=== PATIENT | male | born 1960 ===

== ENCOUNTER → 2017-02-01 | Day surgery (SDC) | payer OTHER ==
[~2017-02-01] MED LIST: Etomidate 20 mg/10ml Inj IV ONE; Lactated Ringer's 1,000 ML IV ONE; Lidocaine 2% Jelly (30 ml) ONE; Midazolam 2 MG/2 ML VIAL ONE; Propofol 10 mg/ml Inj (20 ML) ONE
[2017-02-01 11:07] VITALS: TEMP 98
[2017-02-01 12:10] VITALS: RESP 16; O2SAT 95
[2017-02-01 12:22] VITALS: BP 101/57; PULSE 99
== END | disposition home or self-care (01) ==
LOC: H.ENDO 09:34
PROVIDERS: ATTEND Internal Medicine Gastroenterology
DX: R13.10 Dysphagia, unspecified (principal); R63.3 Feeding difficulties; D38.0 Neoplasm of uncertain behavior of larynx; Z43.1 Encounter for attention to gastrostomy
CPT/HCPCS: 43246; J2250; J2704; J7120

== ENCOUNTER 2017-12-14 15:30 | Inpatient (IN) | payer MEDICAID, OTHER ==
[2017-12-14] MEDS ORDERED: Sodium Chloride 0.9% 1,000 ML IV STA (16:22)
[2017-12-14] MEDS ORDERED: Pantoprazole 80 MG in Sodium Chloride 0.9% 100 ML IVPB STA (16:26)
--- NOTE | 2017-12-14 16:39 | ED PDOC ---
Addendum entered and electronically signed by Pablo Bradshaw PA 12/14/17 20:15: Physical Exam - Physical Exam Appears: Well, No Acute Distress Skin: Normal Color, Warm, Dry Eye(s): bilateral: Normal Inspection, PERRL, EOMI Nose: Normal Oral Mucosa: Dry, Other (dark material noted in mouth) Throat: Normal Neck: Normal Cardiovascular: Rhythm Regular Respiratory: Normal Breath Sounds, Rhonchi Gastrointestinal/Abdominal: Normal Exam, Other ( G tube noted.) Rectal: Other (dark brown stool) Back: Normal Inspection Extremity: Normal ROM Original Note: Syncope/Near Syncope/Dizziness Time Seen by Provider: 12/14/17 16:38 Chief Complaint (Nursing): Weakness/Neurological Deficit Chief Complaint (Provider): weakness History Per: Patient (57 y/o male h/o Bipolar disorder/DM/metastatic laryngeal cancer undergoing chemo (LAST 12/01 OPDIVA, here with complaint of weakness associated with nausea/vomiting/syncope today. Ex who frequently cares for him states he was noted vomiting dark black material today. Patient is on anticoagulants as per ex . Patient states he has a lot of throat pain otherwise. No fevers/chills noted.) Past Medical History Reviewed: Historical Data, Nursing Documentation, Vital Signs Vital Signs: Last Vital Signs Temp 98.2 F 12/14/17 15:39 Pulse 110 H 12/14/17 15:39 Resp 16 12/14/17 15:39 BP 117/73 12/14/17 15:39 Pulse Ox 97 12/14/17 15:39 - Medical History PMH: Hypercholesterolemia - Family History Family History: States: No Known Family Hx - Home Medications Home Medications: Ambulatory Orders Medication Instructions Recorded Aspirin [Ecotrin] 81 mg PO DAILY 02/01/17 Gabapentin [Neurontin] 300 mg PO Q8 02/01/17 Albuterol 0.083% [Albuterol 0.083% 3 ml IH Q6 PRN 12/14/17 Inhal Anahy (2.5 mg/3 ml) UD] Apixaban [Eliquis] 5 mg PO Q12 12/14/17 Methadone 85 mg PO DAILY 12/14/17 Olanzapine [Zyprexa] 15 mg PO HS 12/14/17 Oxycodone HCl/Acetaminophen 1 tab PO Q4 PRN 10/16/18 [Percocet 10-325 mg Tablet] levoFLOXacin [Levaquin] 750 mg PO DAILY 12/14/17 metFORMIN [glucOPHAGE] 850 mg PO BID 12/14/17 - Allergies Allergies/Adverse Reactions: Allergies Allergy/AdvReac Type Severity Reaction Status Date / Time No Known Allergies Allergy Verified 12/14/17 15:39 Review of Systems ROS Statement: Except As Marked, All Systems Reviewed And Found Negative Physical Exam - Reviewed Nursing Documentation Reviewed: Yes Vital Signs Reviewed: Yes - Physical Exam Appears: Positive for: Well, Non-toxic, No Acute Distress Head Exam: Positive for: ATRAUMATIC, NORMAL INSPECTION, NORMOCEPHALIC Skin: Positive for: Normal Color, Warm, DRY Eye Exam: Positive for: EOMI, Normal appearance, PERRL ENT: Positive for: Normal ENT Inspection Neck: Positive for: Normal, Painless ROM Cardiovascular/Chest: Positive for: Regular Rate, Rhythm Respiratory: Positive for: CNT, Normal Breath Sounds Gastrointestinal/Abdominal: Positive for: Normal Exam, Soft Back: Positive for: Normal Inspection Extremity: Positive for: Normal ROM Neurologic/Psych: Positive for: Alert, Oriented - Laboratory Results Result Diagrams: 12/14/17 16:59 12/14/17 16:59 - ECG O2 Sat by Pulse Oximetry: 97 - Progress ED Course And Treament: accucheck 37 1 amp D50 iv x 1 dose repeat Blood glucose 114 D5 1/2 NS 100 ml per hour PROTONIX 80 MG IV; PROTONIX 80 MG/DRIP HEAD CT: IMPRESSION: Partially imaged heterogeneous approximately 4.7 x 2.9 cm mass at the level of the left nasopharynx/oropharynx. Appearance consistent with malignant neoplasm. Additional history provided that the patient is being treated for known laryngeal carcinoma. If indicated, recommend CT soft tissue of the neck with IV contrast for further characterization. Opacification of the left mastoid air cells; correlate for mastoiditis. Minimal fluid in the right mastoid air cells. Findings discussed with JEANNE Bradshaw on 12/14/17 at 6:18 p.m. CXR: IMPRESSION: Multiple pulmonary, pleural base masses bilaterally. Left lower lobe infiltrate. In the absence of prior study CT scan of the thorax advised. Communication of results: I discussed findings directly with the physician physician assistant surgery involved in the care and management of this patient at 18:14. CT CHEST ORDERED. LEVAQUIN 750MG IV X 1 DOSE ORDERED D/W DR. DEWEY. ADMIT TO TELE Disposition - Clinical Impression Clinical Impression: GI bleed, Hypoglycemia, Dehydration - Patient ED Disposition Is Patient to be Admitted: Yes - Disposition Disposition Time: 20:11 Condition: FAIR - Pt Status Changed To: Hospital Disposition Of: Inpatient - Admit Certification Admit to Inpatient:: After my assessment, the patient will require hospitalizat ion for at least two midnights. This is because of the severity of symptoms shown, intensity of services needed, and/or the medical risk in this patient being treated as an outpatient.
[2017-12-14] MEDS ORDERED: Pantoprazole 40 MG in Sodium Chloride 0.9% 100 ML IVPB STA (16:53)
[2017-12-14 17:04] LABS: VENOUS BLOOD GAS BASE EXCESS 8.3 mmol/L (0.0-2.0); VENOUS BLOOD GAS PCO2 66 mmHg (40-60); VENOUS BLOOD GAS PO2 18 mm/Hg (30-55); VENOUS BLOOD PH 7.35 (7.32-7.43)
[2017-12-14] MEDS ORDERED: Dextrose 50% SYRINGE Inj (50 ml) IVP STA (17:10)
[2017-12-14] MEDS ORDERED: Dextrose 50% SYRINGE Inj (50 ml) ONE (17:12)
[2017-12-14 17:22] LABS: BASO % 0.3 % (0.0-2.0); EOS % 0.2 % (0.0-4.0); HEMOGLOBIN 8.4 g/dL (12.0-18.0); LYMPH # 1.1 K/uL (1.0-4.3); LYMPH % 8.9 % (20.0-40.0); MEAN CELL VOLUME 89.5 fl (80.0-94.0); MEAN CORPUSCULAR HEMOGLOBIN 28.1 pg (27.0-31.0); MEAN CORPUSCULAR HGB CONC 31.4 g/dL (33.0-37.0); MEAN PLATELET VOLUME 8.2 fl (7.2-11.7); MONO % 7.8 % (0.0-10.0); NEUT # 10.3 K/uL (1.8-7.0); NEUT % 82.8 % (50.0-75.0); PLATELET COUNT 229 K/uL (130-400); RED CELL DISTRIBUTION WIDTH 21.2 % (11.5-14.5); WHITE BLOOD COUNT 12.4 K/uL (4.8-10.8)
[2017-12-14 17:29] LABS: INR 1.8; PROTHROMBIN TIME 20.4 Seconds (9.8-13.1)
[2017-12-14 17:32] LABS: PARTIAL THROMBOPLASTIN TIME 34.3 Seconds (25.6-37.1)
[2017-12-14 17:44] LABS: TROPONIN I 0.059 ng/mL (0.00-0.120)
[2017-12-14 17:52] LABS: ALB/GLOB RATIO 0.6 (1.0-2.1); ALBUMIN 2.6 g/dL (3.5-5.0)
--- NOTE | 2017-12-14 18:17 | RAD ---
Date of service: 12/14/2017 HISTORY: cough COMPARISON: None. FINDINGS: LUNGS: Multiple bilateral pulmonary nodules/masses. Retrocardiac left lower lobe infiltrate. PLEURA: No significant pleural effusion identified, no pneumothorax apparent. CARDIOVASCULAR: Normal. OSSEOUS STRUCTURES: No significant abnormalities. VISUALIZED UPPER ABDOMEN: Normal. OTHER FINDINGS: None. IMPRESSION: Multiple pulmonary, pleural base masses bilaterally. Left lower lobe infiltrate. In the absence of prior study CT scan of the thorax advised. Communication of results: I discussed findings directly with the physician broker assistant involved in the care and management of this patient at 18:14.
--- NOTE | 2017-12-14 18:27 | CT ---
Date of service: 12/14/2017 PROCEDURE: CT HEAD WITHOUT CONTRAST. HISTORY: syncope COMPARISON: None available. TECHNIQUE: Axial computed tomography images were obtained through the head/brain without intravenous contrast. Radiation dose: Total exam DLP = 1247.83 MGy-cm. This CT exam was performed using one or more of the following dose reduction techniques: Automated exposure control, adjustment of the mA and/or kV according to patient size, and/or use of iterative reconstruction technique. FINDINGS: HEMORRHAGE: No intracranial hemorrhage. BRAIN: No mass effect or edema. The mcmullen-white matter differentiation appears intact. Please note that MRI with diffusion imaging is more sensitive in the detection of acute ischemic event. VENTRICLES: No hydrocephalus. CALVARIUM: Unremarkable. PARANASAL SINUSES: Unremarkable as visualized. No significant inflammatory changes. MASTOID AIR CELLS: Opacification of the left mastoid air cells. Minimal fluid in the right mastoid air cells. OTHER FINDINGS: Partially imaged heterogeneous approximately 4.7 x 2.9 cm mass at the level of the left nasopharynx/oropharynx. IMPRESSION: Partially imaged heterogeneous approximately 4.7 x 2.9 cm mass at the level of the left nasopharynx/oropharynx. Appearance consistent with malignant neoplasm. Additional history provided that the patient is being treated for known laryngeal carcinoma. If indicated, recommend CT soft tissue of the neck with IV contrast for further characterization. Opacification of the left mastoid air cells; correlate for mastoiditis. Minimal fluid in the right mastoid air cells. Findings discussed with JEANNE Bradshaw on 12/14/17 at 6:18 p.m.
[2017-12-14] MEDS ORDERED: levoFLOXacin 750 mg in D5W 150 ML BAG IVPB STA (18:34)
[2017-12-14] MEDS ORDERED: levoFLOXacin 500 mg in D5W 0 MG/0 ML BAG IVPB ONE (18:56)
[2017-12-14] MEDS ORDERED: levoFLOXacin 750 mg in D5W 750 MG/150 ML BAG IVPB STA (19:11)
[2017-12-14] MEDS ORDERED: levoFLOXacin 750 mg in D5W 750 MG/150 ML BAG IVPB ONE (19:14)
[2017-12-14 19:22] LABS: BANDS 3 % (0-2); LYMPHOCYTE 11 % (20-50); MONOCYTE 9 % (0-10); NEUTROPHIL 76 % (42-75); REACTIVE LYMPHOCYTES 1 % (0-0); TOTAL CELLS COUNTED 100
[2017-12-14 19:23] LABS: ANISOCYTOSIS SLIGHT; HYPOCHROMIC SLIGHT; PLATELET ESTIMATE NORMAL (NORMAL); POIKILOCYTOSIS SLIGHT; POLYCHROMIC SLIGHT; TOXIC GRANULATION PRESENT
[2017-12-14] MEDS ORDERED: Dextrose 50% SYRINGE Inj (50 ml) IVP ONE (20:15)
[2017-12-14] MEDS: Dextrose 5%/0.45% NS 1,000 ML IV SCH (20:25)
[2017-12-15] MEDS: Dextrose 5%/0.45% NS 1,000 ML IV SCH ×3 (03:15→19:06)
[2017-12-15 03:42] LABS: SQUAMOUS EPITHIAL < 1 /hpf (0-5); URINE BACTERIA RARE (<OCC); URINE BILIRUBIN NEGATIVE (NEGATIVE); URINE BLOOD MODERATE (NEGATIVE); URINE CALCIUM OXALATE CRYSTALS OCC /hpf (<OCC); URINE CLARITY SLIGHTY-CLOUDY (Clear); URINE COLOR YELLOW (YELLOW); URINE GLUCOSE (UA) NEG (Normal); URINE LEUKOCYTE ESTERASE NEG Leu/uL (Negative); URINE PROTEIN 30 mg/dL (NEGATIVE); URINE UROBILINOGEN 0.2-1.0 mg/dL (0.2-1.0)
--- NOTE | 2017-12-15 06:43 | CARD ---
APPROVED REPORT Date of service: 12/14/2017 EKG Measurement Heart [id number] <Conclusion> Sinus tachycardia with premature atrial complexes with aberrant conduction Low voltage QRS Nonspecific T wave changes Abnormal ECG
[2017-12-15] MEDS ORDERED: Albuterol 0.083% Inhal Sol (2.5 mg/3 mL) UD IH PRN (06:46)
[2017-12-15 08:29] LABS: HEMOGLOBIN 7.9 g/dL (12.0-18.0); MEAN CELL VOLUME 88.5 fl (80.0-94.0); MEAN CORPUSCULAR HEMOGLOBIN 29.1 pg (27.0-31.0); MEAN CORPUSCULAR HGB CONC 32.9 g/dL (33.0-37.0); RBC 2.73 Mil/uL (4.40-5.90); RED CELL DISTRIBUTION WIDTH 21.4 % (11.5-14.5); WHITE BLOOD COUNT 9.3 K/uL (4.8-10.8)
[2017-12-15 08:47] LABS: ALB/GLOB RATIO 0.6 (1.0-2.1); ALBUMIN 2.1 g/dL (3.5-5.0); ALT/SGPT 23 U/L (21-72); AST/SGOT 25 U/L (17-59); BLOOD UREA NITROGEN 18 mg/dl (9-20); CALCIUM 10.4 mg/dL (8.4-10.2); GFR NON-AFRICAN AMERICAN 57
[2017-12-15] MEDS ORDERED: METHADONE PO SCH (09:00)
--- NOTE | 2017-12-15 11:40 | CP.PCM.CON ---
History of Present Illness - History of Present Illness History of Present Illness: GI Fellow PGY 5 Consult Note This is a 57 y male h/o Bipolar disorder,DM,metastatic laryngeal cancer undergoing chemotherapy on 12/01 OPDIVA. Pt had a PEG placed 01/2017 for laryngeal cancer. Pt is here with complaints of weakness associated with nausea/vomiting/syncope today. He also reports significant swelling of left jaw line and neck area. Pt is also on eliquis. Patient states he has a lot of throat pain otherwise. No fevers/chills noted. ROS: A 12pt ROS was negative except as above PmHx: As stated above PsHx: PEG FHx: Neg for colon cancer SHx: Denies current etoh, tobacco, drugs Past Patient History - Past Medical History & Family History Past Medical History?: Yes - Past Social History Smoking Status: Former Smoker - CARDIAC Hx Cardiac Disorders: Yes Hx Hypercholesterolemia: Yes - PULMONARY Hx Respiratory Disorders: Yes Other/Comment: Laryngeal ca - NEUROLOGICAL Hx Neurological Disorder: No - HEENT Hx HEENT Problems: Yes Other/Comment: Laryngeal ca - RENAL Hx Chronic Kidney Disease: No - ENDOCRINE/METABOLIC Hx Endocrine Disorders: Yes Hx Diabetes Mellitus Type 2: Yes - HEMATOLOGICAL/ONCOLOGICAL Hx Blood Disorders: No Hx AIDS: No Hx Human Immunodeficiency Virus (HIV): No - INTEGUMENTARY Hx Dermatological Problems: No - MUSCULOSKELETAL/RHEUMATOLOGICAL Hx Musculoskeletal Disorders: No Hx Falls: No - GASTROINTESTINAL Hx Gastrointestinal Disorders: Yes HX Swallowing Problems: Yes Other/Comment: Peg tube - GENITOURINARY/GYNECOLOGICAL Hx Genitourinary Disorders: No - PSYCHIATRIC Hx Psychophysiologic Disorder: Yes Hx Bipolar Disorder: Yes Hx Substance Use: Yes - SURGICAL HISTORY Hx Surgeries: Yes Other/Comment: THROAT SX, PATIENT OR FAMILY DOES NOT KNOW NAME OF PROCEDURE - ANESTHESIA Hx Anesthesia: Yes Hx Anesthesia Reactions: No Hx Malignant Hyperthermia: No Meds Allergies/Adverse Reactions: Allergies Allergy/AdvReac Type Severity Reaction Status Date / Time No Known Allergies Allergy Verified 12/14/17 15:39 - Medications Medications: Current Medications Albuterol Sulfate (Albuterol 0.083% Inhal Anahy (2.5 Mg/3 Ml) Ud) 2.5 mg IH RQ6 PRN PRN Reason: Shortness of Breath Gabapentin (Neurontin) 300 mg GT Q8 RHEA Last Admin: 12/15/17 11:02 Dose: 300 mg Dextrose/Sodium Chloride (Dextrose 5%/0.45% Ns 1000 Ml) 1,000 mls @ 100 mls/hr IV .Q10H RHEA Stop: 12/15/17 17:11 Last Admin: 12/15/17 03:15 Dose: 100 mls/hr Methadone HCl (Methadone) 80 mg GT DAILY [facility] Last Admin: 12/15/17 11:01 Dose: 80 mg Methadone HCl (Methadone) 5 mg GT DAILY [facility] Last Admin: 12/15/17 10:58 Dose: 5 mg Olanzapine (Zyprexa) 15 mg PO HS [facility] Physical Exam - Constitutional Appears: Toxic, In Acute Distress, Cachectic - Head Exam Head Exam: ATRAUMATIC, NORMAL INSPECTION, NORMOCEPHALIC - Eye Exam Eye Exam: EOMI, Normal appearance, PERRL Pupil Exam: PERRL - ENT Exam ENT Exam: Mucous Membranes Dry - Neck Exam Additional comments: swelling of left parotid gland and neck area - Respiratory Exam Respiratory Exam: Decreased Breath Sounds, NORMAL BREATHING PATTERN - Cardiovascular Exam Cardiovascular Exam: RRR, +S1, +S2 - GI/Abdominal Exam GI & Abdominal Exam: Normal Bowel Sounds, Soft. absent: Distended, Guarding, Tenderness Additional comments: PEG site with no edema or swelling PEG with bilious gastric fluid, no blood - Rectal Exam Rectal Exam: NORMAL INSPECTION. absent: Black Stool, Bloody Stool, Hemorrhoids Additional comments: brown stool - Extremities Exam Extremities exam: Positive for: full ROM, normal inspection - Neurological Exam Neurological exam: Alert - Psychiatric Exam Psychiatric exam: Normal Affect, Normal Mood - Skin Skin Exam: Dry, Intact, Normal Color, Warm Results - Vital Signs Recent Vital Signs: Last Vital Signs Temp 98.0 F 12/15/17 09:00 Pulse 99 H 12/15/17 09:00 Resp 18 12/15/17 09:00 BP 102/69 12/15/17 09:00 Pulse Ox 94 L 12/15/17 09:00 - Labs Result Diagrams: 12/15/17 08:17 12/15/17 08:17 Labs: Laboratory Results - last 24 hr 12/14/17 12/14/17 12/14/17 16:40 16:59 16:59 WBC 12.4 H RBC 3.00 L Hgb 8.4 L Hct 26.8 L MCV 89.5 MCH 28.1 MCHC 31.4 L RDW 21.2 H Plt Count 229 MPV 8.2 Neut % (Auto) 82.8 H Lymph % (Auto) 8.9 L Casey % (Auto) 7.8 Eos % (Auto) 0.2 Baso % (Auto) 0.3 Neut # (Auto) 10.3 H Lymph # (Auto) 1.1 Casey # (Auto) 1.0 H Eos # (Auto) 0.0 Baso # (Auto) 0.0 Neutrophils % (Manual) 76 H Band Neutrophils % 3 H Lymphocytes % (Manual) 11 L Reactive Lymphs % 1 H Monocytes % (Manual) 9 Toxic Granulation Present Platelet Estimate Normal RBC Morphology Normal Polychromasia Slight Hypochromasia (manual) Slight Poikilocytosis (manual Slight Anisocytosis (manual) Slight PT INR APTT pO2 VBG pH VBG pCO2 VBG HCO3 VBG Total CO2 VBG O2 Sat (Calc) VBG Base Excess VBG Potassium Glucose Lactate FiO2 Crit Value Called To Crit Value Called By Crit Value Read Back Blood Gas Notified Time Sodium 141 Potassium 4.1 Chloride 102 Carbon Dioxide 36 H Anion Gap 7 L BUN 22 H Creatinine 1.5 Est GFR ( Amer) 58 Est GFR (Non-Af Amer) 48 POC Glucose (mg/dL) Random Glucose 38 L* Calcium 11.0 H Total Bilirubin 0.5 AST 33 ALT 22 Alkaline Phosphatase 51 Troponin I 0.0590 NT-Pro-B Natriuret Pep 5260 H Total Protein 7.0 Albumin 2.6 L Globulin 4.4 H Albumin/Globulin Ratio 0.6 L Venous Blood Potassium Urine Color Urine Clarity Urine pH Ur Specific [place] Urine Protein Urine Glucose (UA) Urine Ketones Urine Blood Urine Nitrate Urine Bilirubin Urine Urobilinogen Ur Leukocyte Esterase Urine RBC (Auto) Urine Microscopic WBC Ur Squamous Epith Cells Calcium Oxalate Crystal Urine Bacteria Stool Occult Blood Grp A Beta Strep Ag Blood Type A POSITIVE Antibody Screen Negative BBK History Checked No verified bt 12/14/17 12/14/17 12/14/17 16:59 17:00 17:00 WBC RBC Hgb Hct MCV MCH MCHC RDW Plt Count MPV Neut % (Auto) Lymph % (Auto) Casey % (Auto) Eos % (Auto) Baso % (Auto) Neut # (Auto) Lymph # (Auto) Casey # (Auto) Eos # (Auto) Baso # (Auto) Neutrophils % (Manual) Band Neutrophils % Lymphocytes % (Manual) Reactive Lymphs % Monocytes % (Manual) Toxic Granulation Platelet Estimate RBC Morphology Polychromasia Hypochromasia (manual) Poikilocytosis (manual Anisocytosis (manual) PT 20.4 H INR 1.8 APTT 34.3 pO2 18 L VBG pH 7.35 VBG pCO2 66 H* VBG HCO3 29.4 VBG Total CO2 38.4 H VBG O2 Sat (Calc) 27.4 L VBG Base Excess 8.3 H VBG Potassium 3.8 Glucose 39 L* Lactate 1.4 FiO2 21.0 Crit Value Called To Augustine mari Crit Value Called By 6075 Crit Value Read Back Y Blood Gas Notified Time 1703 Sodium 138.0 Potassium Chloride 103.0 Carbon Dioxide Anion Gap BUN Creatinine Est GFR ( Amer) Est GFR (Non-Af Amer) POC Glucose (mg/dL) Random Glucose Calcium Total Bilirubin AST ALT Alkaline Phosphatase Troponin I NT-Pro-B Natriuret Pep Total Protein Albumin Globulin Albumin/Globulin Ratio Venous Blood Potassium 3.8 Urine Color Urine Clarity Urine pH Ur Specific [place] Urine Protein Urine Glucose (UA) Urine Ketones Urine Blood Urine Nitrate Urine Bilirubin Urine Urobilinogen Ur Leukocyte Esterase Urine RBC (Auto) Urine Microscopic WBC Ur Squamous Epith Cells Calcium Oxalate Crystal Urine Bacteria Stool Occult Blood Grp A Beta Strep Ag Negative Blood Type Antibody Screen BBK History Checked 12/14/17 12/14/17 12/14/17 17:08 17:48 19:19 WBC RBC Hgb Hct MCV MCH MCHC RDW Plt Count MPV Neut % (Auto) Lymph % (Auto) Casey % (Auto) Eos % (Auto) Baso % (Auto) Neut # (Auto) Lymph # (Auto) Casey # (Auto) Eos # (Auto) Baso # (Auto) Neutrophils % (Manual) Band Neutrophils % Lymphocytes % (Manual) Reactive Lymphs % Monocytes % (Manual) Toxic Granulation Platelet Estimate RBC Morphology Polychromasia Hypochromasia (manual) Poikilocytosis (manual Anisocytosis (manual) PT INR APTT pO2 VBG pH VBG pCO2 VBG HCO3 VBG Total CO2 VBG O2 Sat (Calc) VBG Base Excess VBG Potassium Glucose Lactate FiO2 Crit Value Called To Crit Value Called By Crit Value Read Back Blood Gas Notified Time Sodium Potassium Chloride Carbon Dioxide Anion Gap BUN Creatinine Est GFR ( Amer) Est GFR (Non-Af Amer) POC Glucose (mg/dL) 37 L* 114 H Random Glucose Calcium Total Bilirubin AST ALT Alkaline Phosphatase Troponin I NT-Pro-B Natriuret Pep Total Protein Albumin Globulin Albumin/Globulin Ratio Venous Blood Potassium Urine Color Urine Clarity Urine pH Ur Specific [place] Urine Protein Urine Glucose (UA) Urine Ketones Urine Blood Urine Nitrate Urine Bilirubin Urine Urobilinogen Ur Leukocyte Esterase Urine RBC (Auto) Urine Microscopic WBC Ur Squamous Epith Cells Calcium Oxalate Crystal Urine Bacteria Stool Occult Blood Positive H Grp A Beta Strep Ag Blood Type Antibody Screen BBK History Checked 12/14/17 12/14/17 12/15/17 20:14 21:37 03:00 WBC RBC Hgb Hct MCV MCH MCHC RDW Plt Count MPV Neut % (Auto) Lymph % (Auto) Casey % (Auto) Eos % (Auto) Baso % (Auto) Neut # (Auto) Lymph # (Auto) Casey # (Auto) Eos # (Auto) Baso # (Auto) Neutrophils % (Manual) Band Neutrophils % Lymphocytes % (Manual) Reactive Lymphs % Monocytes % (Manual) Toxic Granulation Platelet Estimate RBC Morphology Polychromasia Hypochromasia (manual) Poikilocytosis (manual Anisocytosis (manual) PT INR APTT pO2 VBG pH VBG pCO2 VBG HCO3 VBG Total CO2 VBG O2 Sat (Calc) VBG Base Excess VBG Potassium Glucose Lactate FiO2 Crit Value Called To Crit Value Called By Crit Value Read Back Blood Gas Notified Time Sodium Potassium Chloride Carbon Dioxide Anion Gap BUN Creatinine Est GFR ( Amer) Est GFR (Non-Af Amer) POC Glucose (mg/dL) 42 L 97 Random Glucose Calcium Total Bilirubin AST ALT Alkaline Phosphatase Troponin I NT-Pro-B Natriuret Pep Total Protein Albumin Globulin Albumin/Globulin Ratio Venous Blood Potassium Urine Color Yellow Urine Clarity Slighty-cloudy Urine pH 5.0 Ur Specific [place] 1.014 Urine Protein 30 Urine Glucose (UA) Neg Urine Ketones Negative Urine Blood Moderate Urine Nitrate Negative Urine Bilirubin Negative Urine Urobilinogen 0.2-1.0 Ur Leukocyte Esterase Neg Urine RBC (Auto) 17 H Urine Microscopic WBC 4 Ur Squamous Epith Cells < 1 Calcium Oxalate Crystal Occ H Urine Bacteria Rare Stool Occult Blood Grp A Beta Strep Ag Blood Type Antibody Screen BBK History Checked 12/15/17 12/15/17 12/15/17 03:31 05:04 06:33 WBC RBC Hgb Hct MCV MCH MCHC RDW Plt Count MPV Neut % (Auto) Lymph % (Auto) Casey % (Auto) Eos % (Auto) Baso % (Auto) Neut # (Auto) Lymph # (Auto) Casey # (Auto) Eos # (Auto) Baso # (Auto) Neutrophils % (Manual) Band Neutrophils % Lymphocytes % (Manual) Reactive Lymphs % Monocytes % (Manual) Toxic Granulation Platelet Estimate RBC Morphology Polychromasia Hypochromasia (manual) Poikilocytosis (manual Anisocytosis (manual) PT INR APTT pO2 VBG pH VBG pCO2 VBG HCO3 VBG Total CO2 VBG O2 Sat (Calc) VBG Base Excess VBG Potassium Glucose Lactate FiO2 Crit Value Called To Crit Value Called By Crit Value Read Back Blood Gas Notified Time Sodium Potassium Chloride Carbon Dioxide Anion Gap BUN Creatinine Est GFR ( Amer) Est GFR (Non-Af Amer) POC Glucose (mg/dL) 54 L 61 L 74 Random Glucose Calcium Total Bilirubin AST ALT Alkaline Phosphatase Troponin I NT-Pro-B Natriuret Pep Total Protein Albumin Globulin Albumin/Globulin Ratio Venous Blood Potassium Urine Color Urine Clarity Urine pH Ur Specific [place] Urine Protein Urine Glucose (UA) Urine Ketones Urine Blood Urine Nitrate Urine Bilirubin Urine Urobilinogen Ur Leukocyte Esterase Urine RBC (Auto) Urine Microscopic WBC Ur Squamous Epith Cells Calcium Oxalate Crystal Urine Bacteria Stool Occult Blood Grp A Beta Strep Ag Blood Type Antibody Screen BBK History Checked 12/15/17 12/15/17 08:17 08:17 WBC 9.3 RBC 2.73 L Hgb 7.9 L Hct 24.1 L MCV 88.5 MCH 29.1 MCHC 32.9 L RDW 21.4 H Plt Count 213 MPV Neut % (Auto) Lymph % (Auto) Casey % (Auto) Eos % (Auto) Baso % (Auto) Neut # (Auto) Lymph # (Auto) Casey # (Auto) Eos # (Auto) Baso # (Auto) Neutrophils % (Manual) Band Neutrophils % Lymphocytes % (Manual) Reactive Lymphs % Monocytes % (Manual) Toxic Granulation Platelet Estimate RBC Morphology Polychromasia Hypochromasia (manual) Poikilocytosis (manual Anisocytosis (manual) PT INR APTT pO2 VBG pH VBG pCO2 VBG HCO3 VBG Total CO2 VBG O2 Sat (Calc) VBG Base Excess VBG Potassium Glucose Lactate FiO2 Crit Value Called To Crit Value Called By Crit Value Read Back Blood Gas Notified Time Sodium 138 Potassium 3.3 L Chloride 103 Carbon Dioxide 36 H Anion Gap 2 L BUN 18 Creatinine 1.3 Est GFR ( Amer) > 60 Est GFR (Non-Af Amer) 57 POC Glucose (mg/dL) Random Glucose 68 L Calcium 10.4 H Total Bilirubin 0.3 AST 25 ALT 23 Alkaline Phosphatase 43 Troponin I NT-Pro-B Natriuret Pep Total Protein 5.9 L Albumin 2.1 L Globulin 3.8 Albumin/Globulin Ratio 0.6 L Venous Blood Potassium Urine Color Urine Clarity Urine pH Ur Specific [place] Urine Protein Urine Glucose (UA) Urine Ketones Urine Blood Urine Nitrate Urine Bilirubin Urine Urobilinogen Ur Leukocyte Esterase Urine RBC (Auto) Urine Microscopic WBC Ur Squamous Epith Cells Calcium Oxalate Crystal Urine Bacteria Stool Occult Blood Grp A Beta Strep Ag Blood Type Antibody Screen BBK History Checked Assessment & Plan - Assessment and Plan (Free Text) Assessment: 1. Metastatic laryngeal cancer 2. Anemia 3. s/p PEG 4. Parotiditis Plan: -Continue supportive care with pain control and anti-emetics -No active GI bleeding, rectal exam with brown stool, PEG with bilious fluid, no blood -Hgb stable, transfuse as needed, monitor H/H -Anemia maybe due to cancer and chemotherapy -IV PPI therapy -No plan for endoscopic evaluation -Okay to continue OAC -Recommend oncology cs -Will continue to follow pt closely
--- NOTE | 2017-12-15 13:10 | CP.PCM.HP ---
History of Present Illness - History of Present Illness History of Present Illness: 57 y/o male with h/o Bipolar disorder, DM, metastatic laryngeal cancer undergoing chemo last treatment on 12/01 OPDIVA presents to ED complaint of weakness associated with nausea/vomiting/syncope x 1 day. He also reports significant swelling of left jaw line and neck area. Pt is also on eliquis. Patient states he has a lot of throat pain. Otherwise he denies fevers/chills, abdominal pain, headaches, chest pain or palpitations, sob, no urinary symptoms, diarrhea or constipation. ROS: A 12pt ROS was negative except as above PmHx: As stated above PsHx: PEG FHx: Neg for colon cancer SHx: Denies current etoh, tobacco, drugs Meds see bellow NKDA Present on Admission - Present on Admission Any Indicators Present on Admission: No Past Patient History - Past Medical History & Family History Past Medical History?: Yes - Past Social History Smoking Status: Former Smoker - CARDIAC Hx Cardiac Disorders: Yes Hx Hypercholesterolemia: Yes - PULMONARY Hx Respiratory Disorders: Yes Other/Comment: Laryngeal ca - NEUROLOGICAL Hx Neurological Disorder: No - HEENT Hx HEENT Problems: Yes Other/Comment: Laryngeal ca - RENAL Hx Chronic Kidney Disease: No - ENDOCRINE/METABOLIC Hx Endocrine Disorders: Yes Hx Diabetes Mellitus Type 2: Yes - HEMATOLOGICAL/ONCOLOGICAL Hx Blood Disorders: No Hx AIDS: No Hx Human Immunodeficiency Virus (HIV): No - INTEGUMENTARY Hx Dermatological Problems: No - MUSCULOSKELETAL/RHEUMATOLOGICAL Hx Musculoskeletal Disorders: No Hx Falls: No - GASTROINTESTINAL Hx Gastrointestinal Disorders: Yes HX Swallowing Problems: Yes Other/Comment: Peg tube - GENITOURINARY/GYNECOLOGICAL Hx Genitourinary Disorders: No - PSYCHIATRIC Hx Psychophysiologic Disorder: Yes Hx Bipolar Disorder: Yes Hx Substance Use: Yes - SURGICAL HISTORY Hx Surgeries: Yes Other/Comment: THROAT SX, PATIENT OR FAMILY DOES NOT KNOW NAME OF PROCEDURE - ANESTHESIA Hx Anesthesia: Yes Hx Anesthesia Reactions: No Hx Malignant Hyperthermia: No Meds Allergies/Adverse Reactions: Allergies Allergy/AdvReac Type Severity Reaction Status Date / Time No Known Allergies Allergy Verified 12/14/17 15:39 Physical Exam - Constitutional Appears: No Acute Distress - Head Exam Head Exam: NORMAL INSPECTION - Respiratory Exam Respiratory Exam: Clear to Auscultation Bilateral - Cardiovascular Exam Cardiovascular Exam: REGULAR RHYTHM, +S1, +S2 - GI/Abdominal Exam GI & Abdominal Exam: Soft. absent: Distended, Tenderness - Extremities Exam Extremities exam: Negative for: calf tenderness - Neurological Exam Neurological exam: Oriented x3 - Skin Skin Exam: Dry, Warm Additional comments: Multiple echymosis noted on arms and legs b/l Results - Vital Signs Recent Vital Signs: Last Vital Signs Temp 98.6 F 12/15/17 12:42 Pulse 85 12/15/17 12:42 Resp 20 12/15/17 12:42 BP 107/66 12/15/17 12:42 Pulse Ox 93 L 12/15/17 12:42 - Labs Result Diagrams: 12/15/17 08:17 12/15/17 08:17 Labs: Laboratory Results - last 24 hr 12/14/17 12/14/17 12/14/17 16:40 16:59 16:59 WBC 12.4 H RBC 3.00 L Hgb 8.4 L Hct 26.8 L MCV 89.5 MCH 28.1 MCHC 31.4 L RDW 21.2 H Plt Count 229 MPV 8.2 Neut % (Auto) 82.8 H Lymph % (Auto) 8.9 L [place] % (Auto) 7.8 Eos % (Auto) 0.2 Baso % (Auto) 0.3 Neut # (Auto) 10.3 H Lymph # (Auto) 1.1 [place] # (Auto) 1.0 H Eos # (Auto) 0.0 Baso # (Auto) 0.0 Neutrophils % (Manual) 76 H Band Neutrophils % 3 H Lymphocytes % (Manual) 11 L Reactive Lymphs % 1 H Monocytes % (Manual) 9 Toxic Granulation Present Platelet Estimate Normal RBC Morphology Normal Polychromasia Slight Hypochromasia (manual) Slight Poikilocytosis (manual Slight Anisocytosis (manual) Slight PT INR APTT pO2 VBG pH VBG pCO2 VBG HCO3 VBG Total CO2 VBG O2 Sat (Calc) VBG Base Excess VBG Potassium Glucose Lactate FiO2 Crit Value Called To Crit Value Called By Crit Value Read Back Blood Gas Notified Time Sodium 141 Potassium 4.1 Chloride 102 Carbon Dioxide 36 H Anion Gap 7 L BUN 22 H Creatinine 1.5 Est GFR ( Amer) 58 Est GFR (Non-Af Amer) 48 POC Glucose (mg/dL) Random Glucose 38 L* Calcium 11.0 H Total Bilirubin 0.5 AST 33 ALT 22 Alkaline Phosphatase 51 Troponin I 0.0590 NT-Pro-B Natriuret Pep 5260 H Total Protein 7.0 Albumin 2.6 L Globulin 4.4 H Albumin/Globulin Ratio 0.6 L Venous Blood Potassium Urine Color Urine Clarity Urine pH Ur Specific [place] Urine Protein Urine Glucose (UA) Urine Ketones Urine Blood Urine Nitrate Urine Bilirubin Urine Urobilinogen Ur Leukocyte Esterase Urine RBC (Auto) Urine Microscopic WBC Ur Squamous Epith Cells Calcium Oxalate Crystal Urine Bacteria Stool Occult Blood Grp A Beta Strep Ag Blood Type A POSITIVE Antibody Screen Negative BBK History Checked No verified bt 12/14/17 12/14/17 12/14/17 16:59 17:00 17:00 WBC RBC Hgb Hct MCV MCH MCHC RDW Plt Count MPV Neut % (Auto) Lymph % (Auto) [place] % (Auto) Eos % (Auto) Baso % (Auto) Neut # (Auto) Lymph # (Auto) [place] # (Auto) Eos # (Auto) Baso # (Auto) Neutrophils % (Manual) Band Neutrophils % Lymphocytes % (Manual) Reactive Lymphs % Monocytes % (Manual) Toxic Granulation Platelet Estimate RBC Morphology Polychromasia Hypochromasia (manual) Poikilocytosis (manual Anisocytosis (manual) PT 20.4 H INR 1.8 APTT 34.3 pO2 18 L VBG pH 7.35 VBG pCO2 66 H* VBG HCO3 29.4 VBG Total CO2 38.4 H VBG O2 Sat (Calc) 27.4 L VBG Base Excess 8.3 H VBG Potassium 3.8 Glucose 39 L* Lactate 1.4 FiO2 21.0 Crit Value Called To Augustine mari Crit Value Called By 6075 Crit Value Read Back Y Blood Gas Notified Time 1703 Sodium 138.0 Potassium Chloride 103.0 Carbon Dioxide Anion Gap BUN Creatinine Est GFR ( Amer) Est GFR (Non-Af Amer) POC Glucose (mg/dL) Random Glucose Calcium Total Bilirubin AST ALT Alkaline Phosphatase Troponin I NT-Pro-B Natriuret Pep Total Protein Albumin Globulin Albumin/Globulin Ratio Venous Blood Potassium 3.8 Urine Color Urine Clarity Urine pH Ur Specific [place] Urine Protein Urine Glucose (UA) Urine Ketones Urine Blood Urine Nitrate Urine Bilirubin Urine Urobilinogen Ur Leukocyte Esterase Urine RBC (Auto) Urine Microscopic WBC Ur Squamous Epith Cells Calcium Oxalate Crystal Urine Bacteria Stool Occult Blood Grp A Beta Strep Ag Negative Blood Type Antibody Screen BBK History Checked 12/14/17 12/14/17 12/14/17 17:08 17:48 19:19 WBC RBC Hgb Hct MCV MCH MCHC RDW Plt Count MPV Neut % (Auto) Lymph % (Auto) [place] % (Auto) Eos % (Auto) Baso % (Auto) Neut # (Auto) Lymph # (Auto) [place] # (Auto) Eos # (Auto) Baso # (Auto) Neutrophils % (Manual) Band Neutrophils % Lymphocytes % (Manual) Reactive Lymphs % Monocytes % (Manual) Toxic Granulation Platelet Estimate RBC Morphology Polychromasia Hypochromasia (manual) Poikilocytosis (manual Anisocytosis (manual) PT INR APTT pO2 VBG pH VBG pCO2 VBG HCO3 VBG Total CO2 VBG O2 Sat (Calc) VBG Base Excess VBG Potassium Glucose Lactate FiO2 Crit Value Called To Crit Value Called By Crit Value Read Back Blood Gas Notified Time Sodium Potassium Chloride Carbon Dioxide Anion Gap BUN Creatinine Est GFR ( Amer) Est GFR (Non-Af Amer) POC Glucose (mg/dL) 37 L* 114 H Random Glucose Calcium Total Bilirubin AST ALT Alkaline Phosphatase Troponin I NT-Pro-B Natriuret Pep Total Protein Albumin Globulin Albumin/Globulin Ratio Venous Blood Potassium Urine Color Urine Clarity Urine pH Ur Specific [place] Urine Protein Urine Glucose (UA) Urine Ketones Urine Blood Urine Nitrate Urine Bilirubin Urine Urobilinogen Ur Leukocyte Esterase Urine RBC (Auto) Urine Microscopic WBC Ur Squamous Epith Cells Calcium Oxalate Crystal Urine Bacteria Stool Occult Blood Positive H Grp A Beta Strep Ag Blood Type Antibody Screen BBK History Checked 12/14/17 12/14/17 12/15/17 20:14 21:37 03:00 WBC RBC Hgb Hct MCV MCH MCHC RDW Plt Count MPV Neut % (Auto) Lymph % (Auto) [place] % (Auto) Eos % (Auto) Baso % (Auto) Neut # (Auto) Lymph # (Auto) [place] # (Auto) Eos # (Auto) Baso # (Auto) Neutrophils % (Manual) Band Neutrophils % Lymphocytes % (Manual) Reactive Lymphs % Monocytes % (Manual) Toxic Granulation Platelet Estimate RBC Morphology Polychromasia Hypochromasia (manual) Poikilocytosis (manual Anisocytosis (manual) PT INR APTT pO2 VBG pH VBG pCO2 VBG HCO3 VBG Total CO2 VBG O2 Sat (Calc) VBG Base Excess VBG Potassium Glucose Lactate FiO2 Crit Value Called To Crit Value Called By Crit Value Read Back Blood Gas Notified Time Sodium Potassium Chloride Carbon Dioxide Anion Gap BUN Creatinine Est GFR ( Amer) Est GFR (Non-Af Amer) POC Glucose (mg/dL) 42 L 97 Random Glucose Calcium Total Bilirubin AST ALT Alkaline Phosphatase Troponin I NT-Pro-B Natriuret Pep Total Protein Albumin Globulin Albumin/Globulin Ratio Venous Blood Potassium Urine Color Yellow Urine Clarity Slighty-cloudy Urine pH 5.0 Ur Specific [place] 1.014 Urine Protein 30 Urine Glucose (UA) Neg Urine Ketones Negative Urine Blood Moderate Urine Nitrate Negative Urine Bilirubin Negative Urine Urobilinogen 0.2-1.0 Ur Leukocyte Esterase Neg Urine RBC (Auto) 17 H Urine Microscopic WBC 4 Ur Squamous Epith Cells < 1 Calcium Oxalate Crystal Occ H Urine Bacteria Rare Stool Occult Blood Grp A Beta Strep Ag Blood Type Antibody Screen BBK History Checked 12/15/17 12/15/17 12/15/17 03:31 05:04 06:33 WBC RBC Hgb Hct MCV MCH MCHC RDW Plt Count MPV Neut % (Auto) Lymph % (Auto) [place] % (Auto) Eos % (Auto) Baso % (Auto) Neut # (Auto) Lymph # (Auto) [place] # (Auto) Eos # (Auto) Baso # (Auto) Neutrophils % (Manual) Band Neutrophils % Lymphocytes % (Manual) Reactive Lymphs % Monocytes % (Manual) Toxic Granulation Platelet Estimate RBC Morphology Polychromasia Hypochromasia (manual) Poikilocytosis (manual Anisocytosis (manual) PT INR APTT pO2 VBG pH VBG pCO2 VBG HCO3 VBG Total CO2 VBG O2 Sat (Calc) VBG Base Excess VBG Potassium Glucose Lactate FiO2 Crit Value Called To Crit Value Called By Crit Value Read Back Blood Gas Notified Time Sodium Potassium Chloride Carbon Dioxide Anion Gap BUN Creatinine Est GFR ( Amer) Est GFR (Non-Af Amer) POC Glucose (mg/dL) 54 L 61 L 74 Random Glucose Calcium Total Bilirubin AST ALT Alkaline Phosphatase Troponin I NT-Pro-B Natriuret Pep Total Protein Albumin Globulin Albumin/Globulin Ratio Venous Blood Potassium Urine Color Urine Clarity Urine pH Ur Specific [place] Urine Protein Urine Glucose (UA) Urine Ketones Urine Blood Urine Nitrate Urine Bilirubin Urine Urobilinogen Ur Leukocyte Esterase Urine RBC (Auto) Urine Microscopic WBC Ur Squamous Epith Cells Calcium Oxalate Crystal Urine Bacteria Stool Occult Blood Grp A Beta Strep Ag Blood Type Antibody Screen BBK History Checked 12/15/17 12/15/17 12/15/17 08:17 08:17 11:26 WBC 9.3 RBC 2.73 L Hgb 7.9 L Hct 24.1 L MCV 88.5 MCH 29.1 MCHC 32.9 L RDW 21.4 H Plt Count 213 MPV Neut % (Auto) Lymph % (Auto) [place] % (Auto) Eos % (Auto) Baso % (Auto) Neut # (Auto) Lymph # (Auto) [place] # (Auto) Eos # (Auto) Baso # (Auto) Neutrophils % (Manual) Band Neutrophils % Lymphocytes % (Manual) Reactive Lymphs % Monocytes % (Manual) Toxic Granulation Platelet Estimate RBC Morphology Polychromasia Hypochromasia (manual) Poikilocytosis (manual Anisocytosis (manual) PT INR APTT pO2 VBG pH VBG pCO2 VBG HCO3 VBG Total CO2 VBG O2 Sat (Calc) VBG Base Excess VBG Potassium Glucose Lactate FiO2 Crit Value Called To Crit Value Called By Crit Value Read Back Blood Gas Notified Time Sodium 138 Potassium 3.3 L Chloride 103 Carbon Dioxide 36 H Anion Gap 2 L BUN 18 Creatinine 1.3 Est GFR ( Amer) > 60 Est GFR (Non-Af Amer) 57 POC Glucose (mg/dL) 82 Random Glucose 68 L Calcium 10.4 H Total Bilirubin 0.3 AST 25 ALT 23 Alkaline Phosphatase 43 Troponin I NT-Pro-B Natriuret Pep Total Protein 5.9 L Albumin 2.1 L Globulin 3.8 Albumin/Globulin Ratio 0.6 L Venous Blood Potassium Urine Color Urine Clarity Urine pH Ur Specific [place] Urine Protein Urine Glucose (UA) Urine Ketones Urine Blood Urine Nitrate Urine Bilirubin Urine Urobilinogen Ur Leukocyte Esterase Urine RBC (Auto) Urine Microscopic WBC Ur Squamous Epith Cells Calcium Oxalate Crystal Urine Bacteria Stool Occult Blood Grp A Beta Strep Ag Blood Type Antibody Screen BBK History Checked Assessment & Plan - Assessment and Plan (Free Text) Assessment: 57 yo male h/o Bipolar disorder, DM, metastatic laryngeal cancer undergoing chemotherapy admitted due upper GI bleeding. Plan: - No active bleeding, PEG with bilious fluid, no blood - NPO, Iv fluids - hold eliquis for now - H/H 7.9/24.1, f/u repeat in noon, transfuse as needed - f/u cbc in am - Anemia maybe due to cancer and chemotherapy - Continue supportive care with pain control and anti-emetics - GI on board, no plan for endoscopy for now - Continue home meds - rest of plan as ordered Case seen and examined with Dr Casarez.
[2017-12-15] MEDS ORDERED: Potassium Chloride 20 mEq 100 ML IVPB ONE (13:14)
[2017-12-15 16:20] LABS: HEMOGLOBIN 7.7 g/dL (12.0-18.0); MEAN CELL VOLUME 88.8 fl (80.0-94.0); MEAN CORPUSCULAR HEMOGLOBIN 28.4 pg (27.0-31.0); MEAN CORPUSCULAR HGB CONC 31.9 g/dL (33.0-37.0); RBC 2.7 Mil/uL (4.40-5.90); RED CELL DISTRIBUTION WIDTH 20.7 % (11.5-14.5); WHITE BLOOD COUNT 9.5 K/uL (4.8-10.8)
--- NOTE | 2017-12-15 16:41 | CT ---
Date of service: 12/14/2017 PROCEDURE: CT Chest without contrast HISTORY: pulmonary nodules/possible infiltrate COMPARISON: Plain radiographs performed the same day. TECHNIQUE: Contiguous axial images were obtained through the chest without intravenous contrast enhancement. Sagittal and coronal reconstructions were performed. Radiation dose: Total exam DLP = 351.9 mGy-cm. This CT exam was performed using one or more of the following dose reduction techniques: Automated exposure control, adjustment of the mA and/or kV according to patient size, and/or use of iterative reconstruction technique. FINDINGS: LUNGS: The lungs are well inflated. There is a 2.9 x 1.9 cm round mass in the right upper lobe, 4.2 x 3.6 cm subpleural mass in the right lateral lower lobe and 3.8 x 3.3 cm subpleural mass in the left upper lobe. There is an approximately 4.7 x 4.2 cm spiculated mass in the posterior segment of the right upper lobe. There is partial collapse/consolidation of the left lower lobe. MEDIASTINUM: Unremarkable thoracic aorta. No aneurysm. Normal sized heart. Main pulmonary artery unremarkable. No vascular congestion. There is bilateral hilar lymphadenopathy. There are enlarged mediastinal lymph nodes, the largest precarinal lymph node measures 11 mm in short axis. No atherosclerotic calcification or mural plaque present. PLEURA: Trace effusions. No pneumothorax. BONES: No fracture. No destructive lesion. UPPER ABDOMEN: There is small perihepatic ascites. There is a 1.6 cm isodense mass in the posterior aspect of the upper pole of the left kidney. Additionally there is a 5 mm high attenuation lesion in the posterior aspect of the upper pole of the left kidney. OTHER FINDINGS: Moderate bilateral gynecomastia. The gastrostomy tube remains in place. IMPRESSION: Large spiculated mass in the posterior segment of the right upper lobe and multiple large solid masses in the right upper lobe, right lower lobe and left upper lobe concerning for primary lung cancer with metastatic masses. Bilateral hilar and mediastinal lymphadenopathy, likely metastatic. Small perihepatic ascites. Incompletely characterized lesions in the posterior aspect of the upper pole of the left kidney. Dedicated CT scan of the abdomen without and with intravenous contrast would be helpful for further characterization.
[2017-12-15] MEDS: Oxycodone/Acetaminophen 5/325 mg Tab PO PRN (17:12)
[2017-12-15] MEDS ORDERED: Glucagon Recombinant 1 mg Inj IM PRN (22:44)
[2017-12-15] MEDS ORDERED: Dextrose 50% SYRINGE Inj (50 ml) IV PRN (22:44)
[2017-12-15] MEDS ORDERED: Dextrose 50% SYRINGE Inj (50 ml) ONE (22:50)
[2017-12-16] MEDS: Dextrose 5%/0.45% NS 1,000 ML IV SCH (05:00)
[2017-12-16 05:46] LABS: BASO % 0.4 % (0.0-2.0); EOS # 0.2 K/uL (0.0-0.7); EOS % 1.9 % (0.0-4.0); HEMOGLOBIN 7.8 g/dL (12.0-18.0); LYMPH # 0.9 K/uL (1.0-4.3); LYMPH % 9.8 % (20.0-40.0); MEAN CELL VOLUME 89.7 fl (80.0-94.0); MEAN CORPUSCULAR HEMOGLOBIN 28.7 pg (27.0-31.0); MEAN PLATELET VOLUME 8.5 fl (7.2-11.7); MONO % 10.4 % (0.0-10.0); NEUT # 7.2 K/uL (1.8-7.0); NEUT % 77.5 % (50.0-75.0); NRBC % 0.1 % (0.0-0.0); RBC 2.71 Mil/uL (4.40-5.90); RED CELL DISTRIBUTION WIDTH 21.4 % (11.5-14.5); WHITE BLOOD COUNT 9.3 K/uL (4.8-10.8)
[2017-12-16 06:13] LABS: ALB/GLOB RATIO 0.6 (1.0-2.1); ALT/SGPT 31 U/L (21-72); AST/SGOT 36 U/L (17-59); BLOOD UREA NITROGEN 13 mg/dl (9-20); GFR NON-AFRICAN AMERICAN 57
[2017-12-16] MEDS: Oxycodone/Acetaminophen 5/325 mg Tab PO PRN ×2 (06:48→10:31)
--- NOTE | 2017-12-16 09:19 | CP.PCM.PN ---
Subjective - Date & Time of Evaluation Date of Evaluation: 12/16/17 Time of Evaluation: 08:40 - Subjective Subjective: GI Fellow PGY5 Progress Note Pt seen and evaluated at bedside, pt still reports pain on left side of face and neck, difficulty talking. No reported bleeding or acute events overnight. ROS: A 12pt ROS was negative except as above. Objective - Vital Signs/Intake and Output Vital Signs (last 24 hours): Temp Pulse Resp BP Pulse Ox 98.9 F 94 H 20 115/74 99 12/16/17 08:18 12/16/17 08:18 12/16/17 08:18 12/16/17 08:18 12/16/17 08:18 - Medications Medications: Current Medications Albuterol Sulfate (Albuterol 0.083% Inhal Anahy (2.5 Mg/3 Ml) Ud) 2.5 mg IH RQ6 PRN PRN Reason: Shortness of Breath Dextrose (Dextrose 50% Inj) 0 ml IV STAT PRN; Protocol PRN Reason: Hypoglycemia Protocol Last Admin: 12/15/17 22:50 Dose: 50 ml Dextrose (Glutose 15) 0 gm PO ONCE PRN; Protocol PRN Reason: Hypoglycemia Protocol Gabapentin (Neurontin) 300 mg GT Q8 [facility] Last Admin: 12/16/17 01:25 Dose: 300 mg Glucagon (Glucagen Diagnostic Kit) 0 mg IM STAT PRN; Protocol PRN Reason: Hypoglycemia Protocol Dextrose/Sodium Chloride (Dextrose 5%/0.45% Ns 1000 Ml) 1,000 mls @ 100 mls/hr IV .Q10H [facility] Stop: 12/16/17 18:23 Last Admin: 12/16/17 05:00 Dose: 100 mls/hr Methadone HCl (Methadone) 80 mg GT DAILY [facility] Last Admin: 12/15/17 11:01 Dose: 80 mg Methadone HCl (Methadone) 5 mg GT DAILY [facility] Last Admin: 12/15/17 10:58 Dose: 5 mg Olanzapine (Zyprexa) 15 mg PO HS [facility] Last Admin: 12/15/17 21:20 Dose: 15 mg Oxycodone/Acetaminophen (Percocet 5/325 Mg Tab) 1 tab PO Q4 PRN PRN Reason: Pain, severe (8-10) Last Admin: 12/16/17 06:48 Dose: 1 tab Pantoprazole Sodium (Protonix Inj) 40 mg IVP DAILY [facility] Last Admin: 12/15/17 17:13 Dose: 40 mg - Labs Labs: 12/16/17 05:32 12/16/17 05:32 PT 20.4 Seconds (9.8-13.1) H 12/14/17 16:59 INR 1.8 12/14/17 16:59 APTT 34.3 Seconds (25.6-37.1) 12/14/17 16:59 - Constitutional Appears: Chronically Ill - Head Exam Head Exam: ATRAUMATIC, NORMAL INSPECTION, NORMOCEPHALIC - Eye Exam Eye Exam: EOMI, Normal appearance, PERRL Pupil Exam: PERRL - ENT Exam ENT Exam: Mucous Membranes Dry - Neck Exam Neck Exam: Lymphadenopathy, Tenderness - Respiratory Exam Respiratory Exam: Decreased Breath Sounds, NORMAL BREATHING PATTERN - Cardiovascular Exam Cardiovascular Exam: RRR, +S1, +S2 - GI/Abdominal Exam GI & Abdominal Exam: Soft, Normal Bowel Sounds. absent: Distended, Firm, Guarding, Rigid, Tenderness - Rectal Exam Rectal Exam: Deferred - Extremities Exam Extremities Exam: Full ROM, Normal Inspection - Neurological Exam Neurological Exam: Alert, Awake, Oriented x3 - Psychiatric Exam Psychiatric exam: Normal Affect, Normal Mood - Skin Skin Exam: Dry, Erythema, Intact, Petechiae, Warm Assessment and Plan - Assessment and Plan (Free Text) Assessment: 1. Metastatic laryngeal cancer 2. Anemia 3. s/p PEG 4. Facial swelling and pain Plan: -Continue supportive care with pain control and anti-emetics -No active GI bleeding, rectal exam with brown stool, PEG with bilious fluid, no blood -Hgb stable, transfuse as needed, monitor H/H -Anemia maybe due to cancer and chemotherapy -IV PPI daily -No plan for endoscopic evaluation -Okay to continue OAC -Recommend oncology cs -Okay to start Tube Feeds and water flushes per primary team -Will continue to follow pt closely
[2017-12-16] MEDS ORDERED: Albuterol 0.083% Inhal Sol (2.5 mg/3 mL) UD IH PRN (12:40)
--- NOTE | 2017-12-16 12:53 | CP.PCM.PCO ---
Assessment & Plan - Assessment and Plan (Free Text) Assessment: patient more lethargic today, afebrile Lungs scattered rhochi throughout pt. currently NPO, GI cleared to start TF today Glucerna 1.2 started at 30/hr, titrate to goal rate as tolerated check resudual aspiration precautions repeat chest xray today Heme/onc consult Dr.V moctezuma Spoke to patient's Idalia and according to her, pt. lives alone in a basement with few hours of VNS, Idalia and pt. have been for years but she continues to care for patient. Idalia reports pt. is unable to care for self at home and is requesting [facility] to LTC PT jonh ordered cont. suction prn rachel
--- NOTE | 2017-12-16 12:53 | CP.PCM.PN ---
Subjective - Date & Time of Evaluation Date of Evaluation: 12/16/17 Time of Evaluation: 12:51 - Subjective Subjective: Patient seen and examined this morning on rounds, looks more lethargic but easy aurosable afebrile, VSS though tachy noted Objective - Vital Signs/Intake and Output Vital Signs (last 24 hours): Temp Pulse Resp BP Pulse Ox 98.3 F 94 H 20 110/71 99 12/16/17 12:00 12/16/17 12:00 12/16/17 12:00 12/16/17 12:00 12/16/17 12:00 - Medications Medications: Current Medications Albuterol Sulfate (Albuterol 0.083% Inhal Anahy (2.5 Mg/3 Ml) Ud) 2.5 mg IH RQ4 PRN PRN Reason: Shortness of Breath Dextrose (Dextrose 50% Inj) 0 ml IV STAT PRN; Protocol PRN Reason: Hypoglycemia Protocol Last Admin: 12/15/17 22:50 Dose: 50 ml Dextrose (Glutose 15) 0 gm PO ONCE PRN; Protocol PRN Reason: Hypoglycemia Protocol Gabapentin (Neurontin) 300 mg GT Q8 [facility] Last Admin: 12/16/17 01:25 Dose: 300 mg Glucagon (Glucagen Diagnostic Kit) 0 mg IM STAT PRN; Protocol PRN Reason: Hypoglycemia Protocol Methadone HCl (Methadone) 80 mg GT DAILY [facility] Last Admin: 12/16/17 12:46 Dose: 80 mg Methadone HCl (Methadone) 5 mg GT DAILY [facility] Last Admin: 12/16/17 10:30 Dose: 5 mg Olanzapine (Zyprexa) 15 mg PO HS [facility] Last Admin: 12/15/17 21:20 Dose: 15 mg Oxycodone/Acetaminophen (Percocet 5/325 Mg Tab) 1 tab PO Q4 PRN PRN Reason: Pain, severe (8-10) Last Admin: 12/16/17 10:31 Dose: 1 tab Pantoprazole Sodium (Protonix Inj) 40 mg IVP DAILY [facility] Last Admin: 12/16/17 10:32 Dose: 40 mg - Labs Labs: 12/16/17 05:32 12/16/17 05:32 PT 20.4 Seconds (9.8-13.1) H 12/14/17 16:59 INR 1.8 12/14/17 16:59 APTT 34.3 Seconds (25.6-37.1) 12/14/17 16:59 - Constitutional Appears: No Acute Distress - Head Exam Head Exam: NORMAL INSPECTION - Eye Exam Eye Exam: EOMI, PERRL - Respiratory Exam Respiratory Exam: Decreased Breath Sounds, Rhonchi - Cardiovascular Exam Cardiovascular Exam: REGULAR RHYTHM, +S1, +S2 - GI/Abdominal Exam GI & Abdominal Exam: Soft. absent: Distended, Tenderness Additional comments: PEG in site, clean - Extremities Exam Extremities Exam: absent: Calf Tenderness, Pedal Edema - Neurological Exam Additional comments: Lethargic but easy arousable Assessment and Plan - Assessment and Plan (Free Text) Assessment: 57 yo male h/o Bipolar disorder, DM, metastatic laryngeal cancer undergoing chemotherapy admitted due upper GI bleeding. Plan: - No active bleeding, PEG with bilious fluid, no blood - start tube feeds per GI - hold eliquis for now - H/H 7.9/24.1, stable - f/u cbc in am - repeat chest xray today - Anemia maybe due to cancer and chemotherapy - Continue supportive care with pain control and anti-emetics - GI on board recommendations appreciated - heme consulted, recommendations appreciated - Continue home meds - rest of plan as ordered - PT eval ordered Case seen and examined with Dr Casarez.
--- NOTE | 2017-12-16 14:23 | RAD ---
Date of service: 12/16/2017 HISTORY: f/u COMPARISON: 12/14/2017 TECHNIQUE: Chest PA and lateral FINDINGS: LUNGS: Two right pulmonary masses unchanged from prior examination. No right-sided infiltrate. There is complete opacification of the left hemithorax with shift of the heart and trachea towards the left side consistent with left-sided volume loss. PLEURA: No evidence of right pleural effusion. Cannot rule out left pleural effusion. CARDIOVASCULAR: Atherosclerotic calcification of the aortic arch is noted. Heart size cannot be evaluated on the basis of this examination. OSSEOUS STRUCTURES: No significant abnormalities. VISUALIZED UPPER ABDOMEN: Normal. OTHER FINDINGS: None. IMPRESSION: Complete opacification of left jazz thorax with left-sided volume loss. Possible left lung atelectasis. Possible mucous plug. Consider bronchoscopic evaluation. Consider further evaluation with computed tomography of the chest. Two right pulmonary masses are again identified.
[2017-12-16 14:32] LABS: IRON < 10 ug/dL (49-181); TOTAL IRON BINDING CAPACITY 174 ug/dL (250-450)
[2017-12-16 14:33] LABS: % IRON SATURATION 5.7 % (20-55)
[2017-12-16] MEDS: Pantoprazole 40 mg Susp UD GT SCH (15:01)
[2017-12-16] MEDS: Azithromycin 500 MG in Sodium Chloride 0.9% 250 ML IVPB SCH (15:03)
--- NOTE | 2017-12-16 15:56 | PQF ---
PROVIDER RESPONSE TEXT: Laryngeal cancer with metastasis, multiple sites REVIEWER QUERY TEXT: Documentation Clarification Your help is requested in clarifying the following clinical documentation, if you can please further specify in the medical record and discharge summary. Would you please clarify the documentation of Metastatic laryngeal cancer: -- Laryngeal cancer with metastasis ( Please document metastatic site or unable to determine) -- Laryngeal cancer is the metastatic site ( Please document primary site if known or unable to deter mine. -- Other explanation please specify CT Chest results in EMR The patient's Clinical Indicators include: CT CHEST: Large spiculated mass in the posterior segment of the right upper lobe and multiple large solid masses in the right upper lobe, right lower lobe and left upper lobe concerning for primary douglas ng cancer with metastatic masses. Bilateral hilar and mediastinal lymphadenopathy, likely metastatic. Small perihepatic ascites. Incompletely characterized lesions in the posterior aspect of the upper pole of the left kidney. Query created by: Dunia Amaro on 12/16/2017 9:22 AM Electronically signed by: Eleazar Casarez 12/16/2017 3:53 PM
--- NOTE | 2017-12-16 16:16 | CP.PCM.CON ---
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 He is being treated at this time with opdivo which he received on Dec 01.. I was unable to find out who is treating him and where. Will try to get more information from his ex who still looks after him. He has difficulty speaking because of the lesion, and is in pain because the metastasis to the left jaw. He had a ct scan done in the ED and was found to have about 3 cm lesions in the posterior segment of the right upper lobe, and multiple large solid masses in the right right upper nad left upper lobe. There are also enlarged mediatinal node. Small lesions are seen in the posterior and superior aspect of the right kidney. in the head CT scan he was found to have a large mass in the left nasopharynx. Other than his Hgb which is 7.5, his cbc is more or less normal. Iron tests are low. He has a past h/o bipolar disorder, he was a heavy smoker in the past. Past Patient History - Past Medical History & Family History Past Medical History?: Yes - Past Social History Smoking Status: Former Smoker - CARDIAC Hx Cardiac Disorders: Yes Hx Hypercholesterolemia: Yes - PULMONARY Hx Respiratory Disorders: Yes Other/Comment: Laryngeal ca - NEUROLOGICAL Hx Neurological Disorder: No - HEENT Hx HEENT Problems: Yes Other/Comment: Laryngeal ca - RENAL Hx Chronic Kidney Disease: No - ENDOCRINE/METABOLIC Hx Endocrine Disorders: Yes Hx Diabetes Mellitus Type 2: Yes - HEMATOLOGICAL/ONCOLOGICAL Hx Blood Disorders: No Hx AIDS: No Hx Human Immunodeficiency Virus (HIV): No - INTEGUMENTARY Hx Dermatological Problems: No - MUSCULOSKELETAL/RHEUMATOLOGICAL Hx Musculoskeletal Disorders: No Hx Falls: No - GASTROINTESTINAL Hx Gastrointestinal Disorders: Yes HX Swallowing Problems: Yes Other/Comment: Peg tube - GENITOURINARY/GYNECOLOGICAL Hx Genitourinary Disorders: No - PSYCHIATRIC Hx Psychophysiologic Disorder: Yes Hx Bipolar Disorder: Yes Hx Substance Use: Yes - SURGICAL HISTORY Hx Surgeries: Yes Other/Comment: THROAT SX, PATIENT OR FAMILY DOES NOT KNOW NAME OF PROCEDURE - ANESTHESIA Hx Anesthesia: Yes Hx Anesthesia Reactions: No Hx Malignant Hyperthermia: No Meds Allergies/Adverse Reactions: Allergies Allergy/AdvReac Type Severity Reaction Status Date / Time No Known Allergies Allergy Verified 12/14/17 15:39 - Medications Medications: Current Medications Albuterol Sulfate (Albuterol 0.083% Inhal Anahy (2.5 Mg/3 Ml) Ud) 2.5 mg IH RQ4 PRN PRN Reason: Shortness of Breath Dextrose (Dextrose 50% Inj) 0 ml IV STAT PRN; Protocol PRN Reason: Hypoglycemia Protocol Last Admin: 12/15/17 22:50 Dose: 50 ml Dextrose (Glutose 15) 0 gm PO ONCE PRN; Protocol PRN Reason: Hypoglycemia Protocol Gabapentin (Neurontin) 300 mg GT Q8 RHEA Last Admin: 12/16/17 13:30 Dose: 300 mg Glucagon (Glucagen Diagnostic Kit) 0 mg IM STAT PRN; Protocol PRN Reason: Hypoglycemia Protocol Azithromycin 500 mg/ Sodium (Chloride) 250 mls @ 250 mls/hr IVPB DAILY RHEA; Protocol Last Admin: 12/16/17 15:03 Dose: 250 mls/hr Methadone HCl (Methadone) 80 mg GT DAILY RHEA Last Admin: 12/16/17 12:46 Dose: 80 mg Methadone HCl (Methadone) 5 mg GT DAILY RHEA Last Admin: 12/16/17 10:30 Dose: 5 mg Olanzapine (Zyprexa) 15 mg PO HS RHEA Last Admin: 12/15/17 21:20 Dose: 15 mg Oxycodone/Acetaminophen (Percocet 5/325 Mg Tab) 1 tab PO Q4 PRN PRN Reason: Pain, severe (8-10) Last Admin: 12/16/17 10:31 Dose: 1 tab Pantoprazole Sodium (Protonix Susp) 40 mg GT DAILY RHEA Last Admin: 12/16/17 15:01 Dose: 40 mg Physical Exam - Additional Findings Additional findings: Physical exam; Pt is asleep right now and Itried to wake him up without much success. neck; A 3 cm mass in left cervical area,firm in consistency , looks like metastasis Chest; Decreased air entry in the left lower lobe, no rales or rhonchi Heart; RSR, no murmur Abd; Soft, no mass, no h/s megaly Results - Vital Signs Recent Vital Signs: Last Vital Signs Temp 98.6 F 12/16/17 16:06 Pulse 119 H 12/16/17 16:06 Resp 17 12/16/17 16:06 BP 106/71 12/16/17 16:06 Pulse Ox 98 12/16/17 16:06 - Labs Result Diagrams: 12/16/17 05:32 12/16/17 05:32 Labs: Laboratory Results - last 24 hr 12/15/17 12/15/17 12/15/17 15:29 16:10 21:57 WBC 9.5 RBC 2.70 L Hgb 7.7 L Hct 24.0 L MCV 88.8 MCH 28.4 MCHC 31.9 L RDW 20.7 H Plt Count 207 MPV Neut % (Auto) Lymph % (Auto) Mccone % (Auto) Eos % (Auto) Baso % (Auto) Neut # (Auto) Lymph # (Auto) Mccone # (Auto) Eos # (Auto) Baso # (Auto) Sodium Potassium Chloride Carbon Dioxide Anion Gap BUN Creatinine Est GFR ( Amer) Est GFR (Non-Af Amer) POC Glucose (mg/dL) 68 64 L Random Glucose Calcium Iron TIBC % Saturation Ferritin Total Bilirubin AST ALT Alkaline Phosphatase Total Protein Albumin Globulin Albumin/Globulin Ratio Vitamin B12 12/15/17 12/16/17 12/16/17 23:11 05:17 05:32 WBC 9.3 RBC 2.71 L Hgb 7.8 L Hct 24.3 L MCV 89.7 MCH 28.7 MCHC 32.0 L RDW 21.4 H Plt Count 198 MPV 8.5 Neut % (Auto) 77.5 H Lymph % (Auto) 9.8 L Mccone % (Auto) 10.4 H Eos % (Auto) 1.9 Baso % (Auto) 0.4 Neut # (Auto) 7.2 H Lymph # (Auto) 0.9 L Mccone # (Auto) 1.0 H Eos # (Auto) 0.2 Baso # (Auto) 0.0 Sodium Potassium Chloride Carbon Dioxide Anion Gap BUN Creatinine Est GFR ( Amer) Est GFR (Non-Af Amer) POC Glucose (mg/dL) 165 H 78 Random Glucose Calcium Iron TIBC % Saturation Ferritin Total Bilirubin AST ALT Alkaline Phosphatase Total Protein Albumin Globulin Albumin/Globulin Ratio Vitamin B12 12/16/17 12/16/17 12/16/17 05:32 11:48 13:25 WBC RBC Hgb Hct MCV MCH MCHC RDW Plt Count MPV Neut % (Auto) Lymph % (Auto) Mccone % (Auto) Eos % (Auto) Baso % (Auto) Neut # (Auto) Lymph # (Auto) Mccone # (Auto) Eos # (Auto) Baso # (Auto) Sodium 138 Potassium 3.7 Chloride 101 Carbon Dioxide 36 H Anion Gap 5 L BUN 13 Creatinine 1.3 Est GFR ( Amer) > 60 Est GFR (Non-Af Amer) 57 POC Glucose (mg/dL) 78 Random Glucose 81 Calcium 10.0 Iron < 10 L TIBC 174 L % Saturation 5.7 L Ferritin Total Bilirubin 0.4 AST 36 ALT 31 Alkaline Phosphatase 40 Total Protein 5.7 L Albumin 2.0 L Globulin 3.7 Albumin/Globulin Ratio 0.6 L Vitamin B12 12/16/17 13:25 WBC RBC Hgb Hct MCV MCH MCHC RDW Plt Count MPV Neut % (Auto) Lymph % (Auto) Mccone % (Auto) Eos % (Auto) Baso % (Auto) Neut # (Auto) Lymph # (Auto) Mccone # (Auto) Eos # (Auto) Baso # (Auto) Sodium Potassium Chloride Carbon Dioxide Anion Gap BUN Creatinine Est GFR ( Amer) Est GFR (Non-Af Amer) POC Glucose (mg/dL) Random Glucose Calcium Iron TIBC % Saturation Ferritin 158.0 Total Bilirubin AST ALT Alkaline Phosphatase Total Protein Albumin Globulin Albumin/Globulin Ratio Vitamin B12 555 Assessment & Plan - Assessment and Plan (Free Text) Assessment: Impression: metastatic laryngeal and nasopharyngeal cancer. Metastatic disease in the left cervical nodes and lung Plan: Plan; At this time I feel he needs supportive care only to help him get at least a little reconditioned. He has a PEG tube through which feeding has been started. Tomorrow I will try to get more information on him from his oncologist. - Date & Time Date: 12/16/17 Time: 16:46
[2017-12-17 05:53] LABS: BASO # 0.1 K/uL (0.0-0.2); BASO % 0.9 % (0.0-2.0); EOS # 0.2 K/uL (0.0-0.7); EOS % 1.7 % (0.0-4.0); HEMOGLOBIN 7.9 g/dL (12.0-18.0); LYMPH # 1.1 K/uL (1.0-4.3); LYMPH % 12.6 % (20.0-40.0); MEAN CELL VOLUME 89.5 fl (80.0-94.0); MEAN CORPUSCULAR HEMOGLOBIN 28.9 pg (27.0-31.0); MEAN CORPUSCULAR HGB CONC 32.3 g/dL (33.0-37.0); MEAN PLATELET VOLUME 8.5 fl (7.2-11.7); MONO # 0.9 K/uL (0.0-0.8); MONO % 10.1 % (0.0-10.0); NEUT # 6.7 K/uL (1.8-7.0); NEUT % 74.7 % (50.0-75.0); RBC 2.73 Mil/uL (4.40-5.90); RED CELL DISTRIBUTION WIDTH 21.3 % (11.5-14.5)
[2017-12-17 05:56] LABS: ALB/GLOB RATIO 0.6 (1.0-2.1); ALBUMIN 2.1 g/dL (3.5-5.0); ALT/SGPT 31 U/L (21-72); AST/SGOT 64 U/L (17-59); BLOOD UREA NITROGEN 13 mg/dl (9-20); CALCIUM 10.1 mg/dL (8.4-10.2); GFR NON-AFRICAN AMERICAN 57
[2017-12-17] MEDS: Azithromycin 500 MG in Sodium Chloride 0.9% 250 ML IVPB SCH (09:16)
[2017-12-17] MEDS: Pantoprazole 40 mg Susp UD GT SCH (09:19)
[2017-12-17] MEDS ORDERED: Albuterol 0.083% Inhal Sol (2.5 mg/3 mL) UD IH SCH (09:45)
--- NOTE | 2017-12-17 09:46 | CP.PCM.PN ---
Subjective - Date & Time of Evaluation Date of Evaluation: 12/17/17 Time of Evaluation: 08:15 - Subjective Subjective: Attempted to see the patient, but it's difficult to gather information from the patient. Per [place] DATABASE TECHNICIAN, patient receives Percocet 10/325mg #90 from his outside physician. Per staff, patient is also on Methadone 85mg once daily due to hist ory of substance abuse. Patient has a PEG tube and medications are administered through the tube. Objective - Vital Signs/Intake and Output Vital Signs (last 24 hours): Temp Pulse Resp BP Pulse Ox 97.6 F 103 H 18 116/78 98 12/17/17 08:00 12/17/17 08:00 12/17/17 08:00 12/17/17 08:00 12/17/17 08:00 - Medications Medications: Current Medications Albuterol Sulfate (Albuterol 0.083% Inhal Anahy (2.5 Mg/3 Ml) Ud) 2.5 mg IH RQ4 RHEA Dextrose (Dextrose 50% Inj) 0 ml IV STAT PRN; Protocol PRN Reason: Hypoglycemia Protocol Last Admin: 12/15/17 22:50 Dose: 50 ml Dextrose (Glutose 15) 0 gm PO ONCE PRN; Protocol PRN Reason: Hypoglycemia Protocol Gabapentin (Neurontin) 300 mg GT Q8 RHEA Last Admin: 12/17/17 09:19 Dose: 300 mg Glucagon (Glucagen Diagnostic Kit) 0 mg IM STAT PRN; Protocol PRN Reason: Hypoglycemia Protocol Last Admin: 12/16/17 18:11 Dose: 1 mg Azithromycin 500 mg/ Sodium (Chloride) 250 mls @ 250 mls/hr IVPB DAILY RHAE; Protocol Last Admin: 12/17/17 09:16 Dose: 250 mls/hr Methadone HCl (Methadone) 80 mg GT DAILY RHEA Last Admin: 12/17/17 08:50 Dose: 80 mg Methadone HCl (Methadone) 5 mg GT DAILY RHEA Last Admin: 12/17/17 08:50 Dose: 5 mg Olanzapine (Zyprexa) 15 mg PO HS RHEA Last Admin: 12/16/17 21:44 Dose: 15 mg Oxycodone/Acetaminophen (Percocet 5/325 Mg Tab) 1 tab PO Q4 PRN PRN Reason: Pain, severe (8-10) Last Admin: 12/16/17 10:31 Dose: 1 tab Pantoprazole Sodium (Protonix Susp) 40 mg GT DAILY RHEA Last Admin: 12/17/17 09:19 Dose: 40 mg - Labs Labs: 12/17/17 05:00 12/17/17 05:00 PT 20.4 Seconds (9.8-13.1) H 12/14/17 16:59 INR 1.8 12/14/17 16:59 APTT 34.3 Seconds (25.6-37.1) 12/14/17 16:59 Assessment and Plan - Assessment and Plan (Free Text) Assessment: 57 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 On Methadone due to history of substance abuse. - continue Methadone 85mg liquid via PEG - continue Percocet 5/325mg as ordered, crushed via PEG, can increase to Oxycodone 10mg if necessary - can d/c Percocet via PEG, start IV Dilaudid 1mg PRN if PO med for breakthrough is insufficient
--- NOTE | 2017-12-17 10:53 | CP.PCM.PN ---
Subjective - Date & Time of Evaluation Date of Evaluation: 12/17/17 Time of Evaluation: 09:00 - Subjective Subjective: GI Fellow PGY5 Progress Note Pt seen and evaluated at bedside, pt still reports pain on left side of face and neck, difficulty talking. No reported bleeding or acute events overnight. Tolerating TF with some residual. ROS: A 12pt ROS was negative except as above. Objective - Vital Signs/Intake and Output Vital Signs (last 24 hours): Temp Pulse Resp BP Pulse Ox 97.6 F 103 H 18 116/78 98 12/17/17 08:00 12/17/17 08:00 12/17/17 08:00 12/17/17 08:00 12/17/17 08:00 - Medications Medications: Current Medications Albuterol Sulfate (Albuterol 0.083% Inhal Anahy (2.5 Mg/3 Ml) Ud) 2.5 mg IH RQ4 RHEA Dextrose (Dextrose 50% Inj) 0 ml IV STAT PRN; Protocol PRN Reason: Hypoglycemia Protocol Last Admin: 12/15/17 22:50 Dose: 50 ml Dextrose (Glutose 15) 0 gm PO ONCE PRN; Protocol PRN Reason: Hypoglycemia Protocol Gabapentin (Neurontin) 300 mg GT Q8 RHEA Last Admin: 12/17/17 09:19 Dose: 300 mg Glucagon (Glucagen Diagnostic Kit) 0 mg IM STAT PRN; Protocol PRN Reason: Hypoglycemia Protocol Last Admin: 12/16/17 18:11 Dose: 1 mg Azithromycin 500 mg/ Sodium (Chloride) 250 mls @ 250 mls/hr IVPB DAILY RHEA; Protocol Last Admin: 12/17/17 09:16 Dose: 250 mls/hr Methadone HCl (Methadone) 80 mg GT DAILY RHEA Last Admin: 12/17/17 08:50 Dose: 80 mg Methadone HCl (Methadone) 5 mg GT DAILY RHEA Last Admin: 12/17/17 08:50 Dose: 5 mg Olanzapine (Zyprexa) 15 mg PO HS RHEA Last Admin: 12/16/17 21:44 Dose: 15 mg Oxycodone/Acetaminophen (Percocet 5/325 Mg Tab) 1 tab PO Q4 PRN PRN Reason: Pain, severe (8-10) Last Admin: 12/16/17 10:31 Dose: 1 tab Pantoprazole Sodium (Protonix Susp) 40 mg GT DAILY RHEA Last Admin: 12/17/17 09:19 Dose: 40 mg - Labs Labs: 12/17/17 05:00 12/17/17 05:00 PT 20.4 Seconds (9.8-13.1) H 12/14/17 16:59 INR 1.8 12/14/17 16:59 APTT 34.3 Seconds (25.6-37.1) 12/14/17 16:59 - Constitutional Appears: Cachectic, Chronically Ill - Head Exam Head Exam: ATRAUMATIC, NORMAL INSPECTION, NORMOCEPHALIC - Eye Exam Eye Exam: EOMI, Normal appearance, PERRL Pupil Exam: PERRL - ENT Exam ENT Exam: Mucous Membranes Dry - Neck Exam Neck Exam: Tenderness - Respiratory Exam Respiratory Exam: Rhonchi - Cardiovascular Exam Cardiovascular Exam: RRR, +S1, +S2 - GI/Abdominal Exam GI & Abdominal Exam: Soft, Normal Bowel Sounds. absent: Distended, Guarding, Rigid, Tenderness Additional comments: PEG with TF, site looks good - Extremities Exam Extremities Exam: Full ROM, Normal Inspection - Neurological Exam Neurological Exam: Alert, Awake - Psychiatric Exam Psychiatric exam: Flat Affect - Skin Skin Exam: Dry, Erythema, Intact, Warm Assessment and Plan - Assessment and Plan (Free Text) Assessment: 1. Metastatic laryngeal cancer 2. Anemia 3. s/p PEG 4. Facial swelling and pain Plan: -Continue supportive care with pain control and anti-emetics -No active GI bleeding -Hgb stable, transfuse as needed, monitor H/H -Anemia maybe due to cancer and chemotherapy -Okay to continue OAC -Change to po PPI daily via PEG since pt is on OAC -Continue Tube Feeds and water flushes per primary team -No plan for endoscopic evaluation -Will sign off please call with any questions or concerns
--- NOTE | 2017-12-17 11:58 | CP.PCM.PN ---
Subjective - Date & Time of Evaluation Date of Evaluation: 12/17/17 Time of Evaluation: 11:51 - Subjective Subjective: I spoke to pt's ex today. He apparently had this tumor diagnosed about 1 yr ago. He initially received RT but did not respond very well to it. He was started on Chemotherapy with obtivo. His speech was affected because of the tumor, and he was unable to swallow. A peg tube was inserted and is being fed via the tube. There are severa lesions in the lung that the was not aware of. Awaiting a call from pt's oncologist re same. He has no venous access and a PICC line may have to be put in. I feel he will do well to get a transfusion, but will do it after the PICC is in. Objective - Vital Signs/Intake and Output Vital Signs (last 24 hours): Temp Pulse Resp BP Pulse Ox 97.6 F 103 H 18 116/78 98 12/17/17 08:00 12/17/17 08:00 12/17/17 08:00 12/17/17 08:00 12/17/17 08:00 - Medications Medications: Current Medications Albuterol/Ipratropium (Duoneb 3 Mg/0.5 Mg (3 Ml) Ud) 3 ml INH RQ4 RHEA Dextrose (Dextrose 50% Inj) 0 ml IV STAT PRN; Protocol PRN Reason: Hypoglycemia Protocol Last Admin: 12/15/17 22:50 Dose: 50 ml Dextrose (Glutose 15) 0 gm PO ONCE PRN; Protocol PRN Reason: Hypoglycemia Protocol Gabapentin (Neurontin) 300 mg GT Q8 RHEA Last Admin: 12/17/17 09:19 Dose: 300 mg Glucagon (Glucagen Diagnostic Kit) 0 mg IM STAT PRN; Protocol PRN Reason: Hypoglycemia Protocol Last Admin: 12/16/17 18:11 Dose: 1 mg Azithromycin 500 mg/ Sodium (Chloride) 250 mls @ 250 mls/hr IVPB DAILY RHEA; Protocol Last Admin: 12/17/17 09:16 Dose: 250 mls/hr Piperacillin Sod/Tazobactam (Sod 3.375 gm/ Sodium Chloride) 100 mls @ 100 mls/hr IVPB Q8 RHEA; Protocol Methadone HCl (Methadone) 80 mg GT DAILY RHEA Last Admin: 12/17/17 08:50 Dose: 80 mg Methadone HCl (Methadone) 5 mg GT DAILY RHEA Last Admin: 12/17/17 08:50 Dose: 5 mg Olanzapine (Zyprexa) 15 mg PO HS RHEA Last Admin: 12/16/17 21:44 Dose: 15 mg Oxycodone/Acetaminophen (Percocet 5/325 Mg Tab) 1 tab PO Q4 PRN PRN Reason: Pain, severe (8-10) Last Admin: 12/16/17 10:31 Dose: 1 tab Pantoprazole Sodium (Protonix Susp) 40 mg GT DAILY [facility] Last Admin: 12/17/17 09:19 Dose: 40 mg - Labs Labs: 12/17/17 05:00 12/17/17 05:00 PT 20.4 Seconds (9.8-13.1) H 12/14/17 16:59 INR 1.8 12/14/17 16:59 APTT 34.3 Seconds (25.6-37.1) 12/14/17 16:59
[2017-12-17] MEDS ORDERED: Lidocaine 1% 5ml Abboject ONE (12:34)
--- NOTE | 2017-12-17 12:50 | PCM.SURG1 ---
Surgeon's Initial Post Op Note - Surgeon's Notes Surgeon: Roderick Patterson MD Plant Operations Manager: NONE Type of Anesthesia: Local Pre-Operative Diagnosis: Poor venous access Operative Findings: US showed a patent right brachial vein Post-Operative Diagnosis: Poor venous access Operation Performed: Single lumen picc placement right arm, 40 cm. Tip is in the SVC. Specimen/Specimens Removed: NONE Estimated Blood Loss: EBL {In ML}: 2 Blood Products Given: N/A Drains Used: No Drains Post-Op Condition: Fair Date of Surgery/Procedure: 12/17/17 Time of Surgery/Procedure: 12:45
[2017-12-17] MEDS: Piperacillin/Tazobact 3.375 GM in Sodium Chloride 0.9% 100 ML IVPB SCH ×2 (13:00→16:51)
[2017-12-17] MEDS: Albuterol-Ipratrop 3 mg / 0.5 (3 ml) UD INH SCH ×4 (13:15→23:48)
[2017-12-17] MEDS: Oxycodone/Acetaminophen 5/325 mg Tab PO PRN (16:27)
--- NOTE | 2017-12-17 17:26 | CP.PCM.CON ---
History of Present Illness - History of Present Illness History of Present Illness: Pulmonary consult. 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 Worsening symptoms: C/O of pain in L side of face, jaw and throat. Found in CT with with a large mass in the posterior segment of the RUL and multiple large solid masses in the RUL , RLL and CHANDRA, concerning for primary Lung Ca with metastasis. Mediastinal Lymphadenopathy likely metastasis. Aggravated factor: Talking, eating. Pt denied: fever, chills, diarrhea, urinary symptoms, CP, palpitations, SOB, cough, sick contact. Head CT: Mass L Nasopharynx/oropharynx, consistent with malignant neoplasm. CXR on 12/16/17: Complete opacification of the L hemithorax, possible L lung atelectasis. Review of Systems - Review of Systems Systems not reviewed;Unavailable: Acuity of Condition (difficulty to talk 2nd to clinical condition.) - Constitutional Constitutional: Weakness Past Patient History - Past Medical History & Family History Past Medical History?: Yes Pertinent Family History: No Hx of malignancy. - Past Social History Smoking Status: Former Smoker (heavy smoker) Alcohol: None Drugs: Denies Home Situation {Lives}: Alone - CARDIAC Hx Cardiac Disorders: Yes Hx Hypercholesterolemia: Yes - PULMONARY Hx Respiratory Disorders: Yes Hx Chronic Obstructive Pulmonary Disease (COPD): Yes - NEUROLOGICAL Hx Neurological Disorder: No - HEENT Hx HEENT Problems: Yes Other/Comment: Laryngeal ca - RENAL Hx Chronic Kidney Disease: No - ENDOCRINE/METABOLIC Hx Endocrine Disorders: Yes Hx Diabetes Mellitus Type 2: Yes - HEMATOLOGICAL/ONCOLOGICAL Hx Blood Disorders: No Hx AIDS: No Hx Human Immunodeficiency Virus (HIV): No - INTEGUMENTARY Hx Dermatological Problems: No - MUSCULOSKELETAL/RHEUMATOLOGICAL Hx Musculoskeletal Disorders: No Hx Falls: No - GASTROINTESTINAL Hx Gastrointestinal Disorders: Yes HX Swallowing Problems: Yes Other/Comment: Peg tube - GENITOURINARY/GYNECOLOGICAL Hx Genitourinary Disorders: No - PSYCHIATRIC Hx Psychophysiologic Disorder: Yes Hx Bipolar Disorder: Yes Hx Substance Use: Yes - SURGICAL HISTORY Hx Surgeries: Yes Other/Comment: THROAT SX, PATIENT OR FAMILY DOES NOT KNOW NAME OF PROCEDURE - ANESTHESIA Hx Anesthesia: Yes Hx Anesthesia Reactions: No Hx Malignant Hyperthermia: No Meds Allergies/Adverse Reactions: Allergies Allergy/AdvReac Type Severity Reaction Status Date / Time No Known Allergies Allergy Verified 12/14/17 15:39 - Medications Medications: Current Medications Acetylcysteine (Mucomyst 10% 4ml) 3 ml IH RTID RHEA Albuterol/Ipratropium (Duoneb 3 Mg/0.5 Mg (3 Ml) Ud) 3 ml INH RQ4 RHEA Last Admin: 12/17/17 15:34 Dose: 3 ml Dextrose (Dextrose 50% Inj) 0 ml IV STAT PRN; Protocol PRN Reason: Hypoglycemia Protocol Last Admin: 12/15/17 22:50 Dose: 50 ml Dextrose (Glutose 15) 0 gm PO ONCE PRN; Protocol PRN Reason: Hypoglycemia Protocol Gabapentin (Neurontin) 300 mg GT Q8 RHEA Last Admin: 12/17/17 17:15 Dose: Not Given Glucagon (Glucagen Diagnostic Kit) 0 mg IM STAT PRN; Protocol PRN Reason: Hypoglycemia Protocol Last Admin: 12/16/17 18:11 Dose: 1 mg Azithromycin 500 mg/ Sodium (Chloride) 250 mls @ 250 mls/hr IVPB DAILY RHEA; Protocol Last Admin: 12/17/17 09:16 Dose: 250 mls/hr Piperacillin Sod/Tazobactam (Sod 3.375 gm/ Sodium Chloride) 100 mls @ 100 mls/hr IVPB Q8 RHEA; Protocol Last Admin: 12/17/17 16:51 Dose: 100 mls/hr Methadone HCl (Methadone) 80 mg GT DAILY RHEA Last Admin: 12/17/17 08:50 Dose: 80 mg Methadone HCl (Methadone) 5 mg GT DAILY RHEA Last Admin: 12/17/17 08:50 Dose: 5 mg Olanzapine (Zyprexa) 15 mg PO HS RHEA Last Admin: 12/16/17 21:44 Dose: 15 mg Oxycodone/Acetaminophen (Percocet 5/325 Mg Tab) 1 tab PO Q4 PRN PRN Reason: Pain, severe (8-10) Last Admin: 12/17/17 16:27 Dose: 1 tab Pantoprazole Sodium (Protonix Susp) 40 mg GT DAILY RHEA Last Admin: 12/17/17 09:19 Dose: 40 mg Physical Exam - Constitutional Appears: Chronically Ill - Head Exam Head Exam: NORMAL INSPECTION - Eye Exam Eye Exam: PERRL - ENT Exam Additional comments: L Jaw line swelling, oropharynx thick secretions - Neck Exam Neck exam: Positive for: Tenderness Additional comments: Mas in L cervical area with firm consistency - Respiratory Exam Respiratory Exam: Decreased Breath Sounds (B/L, L>R), Rhonchi (scattered) - Cardiovascular Exam Cardiovascular Exam: REGULAR RHYTHM - GI/Abdominal Exam GI & Abdominal Exam: Normal Bowel Sounds, Soft Additional comments: Peg tube - Extremities Exam Extremities exam: Positive for: normal inspection - Back Exam Back exam: NORMAL INSPECTION - Neurological Exam Neurological exam: Alert, Oriented x3 Additional comments: no focal motor/sensory deficit - Skin Skin Exam: Warm Additional comments: Multiple ecchymosis on arms and legs b/l. Results - Vital Signs Recent Vital Signs: Last Vital Signs Temp 98.3 F 12/17/17 15:50 Pulse 116 H 12/17/17 15:50 Resp 17 12/17/17 15:50 BP 105/75 12/17/17 15:50 Pulse Ox 96 12/17/17 15:50 reviewed Crissy - Labs Result Diagrams: 12/17/17 05:00 12/17/17 05:00 Labs: Laboratory Results - last 24 hr 12/16/17 12/16/17 12/16/17 17:38 18:04 18:42 WBC RBC Hgb Hct MCV MCH MCHC RDW Plt Count MPV Neut % (Auto) Lymph % (Auto) [place] % (Auto) Eos % (Auto) Baso % (Auto) Neut # (Auto) Lymph # (Auto) [place] # (Auto) Eos # (Auto) Baso # (Auto) Sodium Potassium Chloride Carbon Dioxide Anion Gap BUN Creatinine Est GFR ( Amer) Est GFR (Non-Af Amer) POC Glucose (mg/dL) 58 L 60 L 112 H Random Glucose Calcium Total Bilirubin AST ALT Alkaline Phosphatase Total Protein Albumin Globulin Albumin/Globulin Ratio Blood Type Antibody Screen Crossmatch BBK History Checked 12/16/17 12/17/17 12/17/17 21:29 05:00 05:00 WBC 9.0 RBC 2.73 L Hgb 7.9 L Hct 24.4 L MCV 89.5 MCH 28.9 MCHC 32.3 L RDW 21.3 H Plt Count 208 MPV 8.5 Neut % (Auto) 74.7 Lymph % (Auto) 12.6 L [place] % (Auto) 10.1 H Eos % (Auto) 1.7 Baso % (Auto) 0.9 Neut # (Auto) 6.7 Lymph # (Auto) 1.1 [place] # (Auto) 0.9 H Eos # (Auto) 0.2 Baso # (Auto) 0.1 Sodium 139 Potassium 3.6 Chloride 103 Carbon Dioxide 38 H Anion Gap 2 L BUN 13 Creatinine 1.3 Est GFR ( Amer) > 60 Est GFR (Non-Af Amer) 57 POC Glucose (mg/dL) 97 Random Glucose 98 Calcium 10.1 Total Bilirubin 0.3 AST 64 H D ALT 31 Alkaline Phosphatase 59 Total Protein 6.0 L Albumin 2.1 L Globulin 3.9 Albumin/Globulin Ratio 0.6 L Blood Type Antibody Screen Crossmatch BBK History Checked 12/17/17 12/17/17 12/17/17 05:14 11:08 15:15 WBC RBC Hgb Hct MCV MCH MCHC RDW Plt Count MPV Neut % (Auto) Lymph % (Auto) [place] % (Auto) Eos % (Auto) Baso % (Auto) Neut # (Auto) Lymph # (Auto) [place] # (Auto) Eos # (Auto) Baso # (Auto) Sodium Potassium Chloride Carbon Dioxide Anion Gap BUN Creatinine Est GFR ( Amer) Est GFR (Non-Af Amer) POC Glucose (mg/dL) 94 112 H Random Glucose Calcium Total Bilirubin AST ALT Alkaline Phosphatase Total Protein Albumin Globulin Albumin/Globulin Ratio Blood Type A POSITIVE Antibody Screen Negative Crossmatch See Detail BBK History Checked Patient has bt 12/17/17 16:16 WBC RBC Hgb Hct MCV MCH MCHC RDW Plt Count MPV Neut % (Auto) Lymph % (Auto) [place] % (Auto) Eos % (Auto) Baso % (Auto) Neut # (Auto) Lymph # (Auto) [place] # (Auto) Eos # (Auto) Baso # (Auto) Sodium Potassium Chloride Carbon Dioxide Anion Gap BUN Creatinine Est GFR ( Amer) Est GFR (Non-Af Amer) POC Glucose (mg/dL) 128 H Random Glucose Calcium Total Bilirubin AST ALT Alkaline Phosphatase Total Protein Albumin Globulin Albumin/Globulin Ratio Blood Type Antibody Screen Crossmatch BBK History Checked reviewed J.P. - EKG Data EKG comments: reviewed J.P. - Imaging and Cardiology Chest x-ray Status: Report reviewed by me (Crissy) CT scan - chest Status: Report reviewed by (Crissy) CT scan - head Status: Report reviewed by (Crissy) Assessment & Plan (1) Laryngeal malignant neoplasm Status: Acute (2) Lung metastasis Status: Acute Comment: r/o new Primary (3) Collapse of left lung Status: Acute (4) PNA (pneumonia) Status: Acute (5) Anemia Status: Acute - Assessment and Plan (Free Text) Plan: Continue NC 2 L/M, Zithromax, Zosyn,Vanco, Duoneb,Mucomyst, Methadone, Percocet and rest of Tx., get in touch with Oncologist, attempt to review previous CT Chest, f/u CXR am , if collapse L lung continue to have Bronchoscopy, f/u Hgb - Date & Time Date: 12/17/17
[2017-12-17] MEDS: Acetylcysteine 10% 4 ML IH SCH (19:24)
[2017-12-18] MEDS: Piperacillin/Tazobact 3.375 GM in Sodium Chloride 0.9% 100 ML IVPB SCH ×2 (03:04→10:37)
[2017-12-18] MEDS: Dextrose 5%/0.45% NS 1,000 ML IV SCH ×2 (03:10→15:13)
[2017-12-18] MEDS: Albuterol-Ipratrop 3 mg / 0.5 (3 ml) UD INH SCH ×6 (04:24→23:39)
[2017-12-18 05:32] LABS: ABG ALLEN TEST YES; ARTERIAL BLOOD GAS HCO3 33.3 mmol/L (21-28); ARTERIAL BLOOD GAS HEMOGLOBIN 8.3 g/dL (11.7-17.4); ARTERIAL BLOOD GAS O2 CAPACITY 11.2 mL/dL (16-24); ARTERIAL BLOOD GAS O2 SAT 98.2 % (95-98); ARTERIAL BLOOD GAS PCO2 58 mm/Hg (35-45); ARTERIAL BLOOD GAS PH 7.41 (7.35-7.45); ARTERIAL BLOOD GAS PO2 66 mm/Hg (80-100); ARTERIAL BLOOD GAS TCO2 38.6 mmol/L (22-28)
[2017-12-18] MEDS: Acetylcysteine 10% 4 ML IH SCH ×3 (07:27→19:06)
[2017-12-18 07:35] LABS: BASO % 0.5 % (0.0-2.0); EOS # 0.1 K/uL (0.0-0.7); EOS % 1.1 % (0.0-4.0); HEMOGLOBIN 8.6 g/dL (12.0-18.0); LYMPH # 0.7 K/uL (1.0-4.3); LYMPH % 10.7 % (20.0-40.0); MEAN CELL VOLUME 90.3 fl (80.0-94.0); MEAN CORPUSCULAR HEMOGLOBIN 28.8 pg (27.0-31.0); MEAN CORPUSCULAR HGB CONC 31.9 g/dL (33.0-37.0); MEAN PLATELET VOLUME 7.6 fl (7.2-11.7); MONO # 0.5 K/uL (0.0-0.8); MONO % 7.4 % (0.0-10.0); NEUT # 5.1 K/uL (1.8-7.0); NEUT % 80.3 % (50.0-75.0); RBC 2.99 Mil/uL (4.40-5.90); RED CELL DISTRIBUTION WIDTH 20.6 % (11.5-14.5); WHITE BLOOD COUNT 6.4 K/uL (4.8-10.8)
[2017-12-18 08:15] LABS: ALB/GLOB RATIO 0.6 (1.0-2.1); ALBUMIN 2.2 g/dL (3.5-5.0); ALT/SGPT 19 U/L (21-72); AST/SGOT 36 U/L (17-59); BLOOD UREA NITROGEN 17 mg/dl (9-20); CALCIUM 9.8 mg/dL (8.4-10.2); GFR NON-AFRICAN AMERICAN 52
[2017-12-18 08:17] LABS: INR 1.2; PROTHROMBIN TIME 13.6 Seconds (9.8-13.1)
[2017-12-18 08:19] LABS: PARTIAL THROMBOPLASTIN TIME 31.4 Seconds (25.6-37.1)
[2017-12-18] MEDS: Pantoprazole 40 mg Susp UD GT SCH ×2 (08:58→10:38)
[2017-12-18] MEDS: Azithromycin 500 MG in Sodium Chloride 0.9% 250 ML IVPB SCH (09:03)
--- NOTE | 2017-12-18 09:04 | RAD ---
Date of service: 12/18/2017 HISTORY: pneumonia COMPARISON: Comparison made with radiographs of the chest 12/16/[address] scan chest 12/14/2017. TECHNIQUE: Chest PA and lateral FINDINGS: Interval placement right-sided PICC line with tip in the SVC LUNGS: Previously noted complete opacification left hemithorax resolved with markedly improved aeration throughout left lung. Redemonstrated are multiple bilateral varying sized rounded parenchymal and pleural-based masses bilateral left lower and right upper lobe atelectatic changes former larger than latter PLEURA: No significant pleural effusion identified. No pneumothorax apparent. CARDIOVASCULAR: Minimal atherosclerotic calcification and mural plaque present though seen to better advantage on prior CT scan Cardiomegaly Mediastinal and hilar adenopathy is less well seen OSSEOUS STRUCTURES: Multilevel degenerative spondylosis of the thoracic spine VISUALIZED UPPER ABDOMEN: Normal. OTHER FINDINGS: None. IMPRESSION: Previously noted complete opacification left hemithorax resolved with markedly improved aeration throughout left lung. Multiple bilateral varying sized rounded parenchymal and pleural-based masses. Bilateral atelectasis as above
--- NOTE | 2017-12-18 12:23 | CP.PCM.PN ---
Subjective - Date & Time of Evaluation Date of Evaluation: 12/18/17 Time of Evaluation: 12:19 - Subjective Subjective: Pt seems to be breathing a little better. His cbc is stable as well.He was transfused 1 unit of packed cells last night and Hgb is 8.6 gms today. Slightly tachycardic, and PO2 93. Will monitor CBC. Objective - Vital Signs/Intake and Output Vital Signs (last 24 hours): Temp Pulse Resp BP Pulse Ox 98 F 114 H 18 126/77 92 L 12/18/17 08:25 12/18/17 08:25 12/18/17 08:25 12/18/17 08:25 12/18/17 08:25 Intake and Output: 12/18/17 12/18/17 06:59 18:59 Intake Total 0 Balance 0 - Medications Medications: Current Medications Acetaminophen (Tylenol 650 Mg Supp) 650 mg [place] Q6 PRN PRN Reason: Fever >100.4 F Last Admin: 12/17/17 20:38 Dose: 650 mg Acetylcysteine (Mucomyst 10% 4ml) 3 ml IH RTID RHEA Last Admin: 12/18/17 07:27 Dose: 3 ml Albuterol/Ipratropium (Duoneb 3 Mg/0.5 Mg (3 Ml) Ud) 3 ml INH RQ4 RHEA Last Admin: 12/18/17 11:06 Dose: 3 ml Dextrose (Dextrose 50% Inj) 0 ml IV STAT PRN; Protocol PRN Reason: Hypoglycemia Protocol Last Admin: 12/15/17 22:50 Dose: 50 ml Dextrose (Glutose 15) 0 gm PO ONCE PRN; Protocol PRN Reason: Hypoglycemia Protocol Gabapentin (Neurontin) 300 mg GT Q8 RHEA Last Admin: 12/18/17 08:58 Dose: Not Given Glucagon (Glucagen Diagnostic Kit) 0 mg IM STAT PRN; Protocol PRN Reason: Hypoglycemia Protocol Last Admin: 12/16/17 18:11 Dose: 1 mg Azithromycin 500 mg/ Sodium (Chloride) 250 mls @ 250 mls/hr IVPB DAILY RHEA; Protocol Last Admin: 12/18/17 09:03 Dose: 250 mls/hr Dextrose/Sodium Chloride (Dextrose 5%/0.45% Ns 1000 Ml) 1,000 mls @ 80 mls/hr IV .[id number] RHEA Stop: 12/18/17 23:24 Last Admin: 12/18/17 03:10 Dose: 80 mls/hr Vancomycin HCl 1 gm/ Sodium (Chloride) 250 mls @ 250 mls/hr IVPB Q12 RHEA; Pro tocol Methadone HCl (Methadone) 80 mg GT DAILY [facility] Last Admin: 12/18/17 09:04 Dose: Not Given Methadone HCl (Methadone) 5 mg GT DAILY [facility] Last Admin: 12/18/17 09:05 Dose: Not Given Olanzapine (Zyprexa) 15 mg PO HS RHEA Last Admin: 12/17/17 21:09 Dose: 15 mg Oxycodone/Acetaminophen (Percocet 5/325 Mg Tab) 1 tab PO Q4 PRN PRN Reason: Pain, severe (8-10) Last Admin: 12/17/17 16:27 Dose: 1 tab Pantoprazole Sodium (Protonix Susp) 40 mg GT DAILY [facility] Last Admin: 12/18/17 10:38 Dose: 40 mg - Labs Labs: 12/18/17 06:00 12/18/17 06:00 PT 13.6 Seconds (9.8-13.1) H 12/18/17 06:00 INR 1.2 12/18/17 06:00 APTT 31.4 Seconds (25.6-37.1) 12/18/17 06:00
--- NOTE | 2017-12-18 16:53 | CP.PCM.PN ---
Subjective - Date & Time of Evaluation Date of Evaluation: 12/18/17 - Subjective Subjective: F/u Laryngeal Neoplasm with Lungs metastasis. Pt c/o of severe headache. Objective - Vital Signs/Intake and Output Vital Signs (last 24 hours): Temp Pulse Resp BP Pulse Ox 98 F 108 H 18 110/71 98 12/18/17 12:19 12/18/17 12:19 12/18/17 12:19 12/18/17 12:19 12/18/17 12:19 Intake and Output: 12/18/17 12/18/17 06:59 18:59 Intake Total 0 Balance 0 - Medications Medications: Current Medications Acetaminophen (Tylenol 650 Mg Supp) 650 mg [place] Q6 PRN PRN Reason: Fever >100.4 F Last Admin: 12/17/17 20:38 Dose: 650 mg Acetylcysteine (Mucomyst 10% 4ml) 3 ml IH RTID RHEA Last Admin: 12/18/17 15:13 Dose: 3 ml Albuterol/Ipratropium (Duoneb 3 Mg/0.5 Mg (3 Ml) Ud) 3 ml INH RQ4 RHEA Last Admin: 12/18/17 15:14 Dose: 3 ml Dextrose (Dextrose 50% Inj) 0 ml IV STAT PRN; Protocol PRN Reason: Hypoglycemia Protocol Last Admin: 12/15/17 22:50 Dose: 50 ml Dextrose (Glutose 15) 0 gm PO ONCE PRN; Protocol PRN Reason: Hypoglycemia Protocol Gabapentin (Neurontin) 300 mg GT Q8 RHEA Last Admin: 12/18/17 08:58 Dose: Not Given Glucagon (Glucagen Diagnostic Kit) 0 mg IM STAT PRN; Protocol PRN Reason: Hypoglycemia Protocol Last Admin: 12/16/17 18:11 Dose: 1 mg Azithromycin 500 mg/ Sodium (Chloride) 250 mls @ 250 mls/hr IVPB DAILY RHEA; Protocol Last Admin: 12/18/17 09:03 Dose: 250 mls/hr Vancomycin HCl 1 gm/ Sodium (Chloride) 250 mls @ 250 mls/hr IVPB Q12 RHEA; Protocol Last Admin: 12/18/17 12:52 Dose: 250 mls/hr Methadone HCl (Methadone) 80 mg GT DAILY RHEA Last Admin: 12/18/17 12:49 Dose: 80 mg Methadone HCl (Methadone) 5 mg GT DAILY RHEA Last Admin: 12/18/17 12:50 Dose: 5 mg Olanzapine (Zyprexa) 15 mg PO HS RHEA Last Admin: 12/17/17 21:09 Dose: 15 mg Oxycodone/Acetaminophen (Percocet 5/325 Mg Tab) 1 tab PO Q4 PRN PRN Reason: Pain, severe (8-10) Last Admin: 12/17/17 16:27 Dose: 1 tab Pantoprazole Sodium (Protonix Susp) 40 mg GT DAILY RHEA Last Admin: 12/18/17 10:38 Dose: 40 mg - Labs Labs: 12/18/17 06:00 12/18/17 06:00 PT 13.6 Seconds (9.8-13.1) H 12/18/17 06:00 INR 1.2 12/18/17 06:00 APTT 31.4 Seconds (25.6-37.1) 12/18/17 06:00 - Constitutional Appears: Chronically Ill - Head Exam Head Exam: NORMAL INSPECTION - Eye Exam Eye Exam: PERRL - ENT Exam Additional comments: L jaw swelling. - Neck Exam Neck Exam: Tenderness (L side) Additional comments: Mass in L cervical area with firm consistency - Respiratory Exam Respiratory Exam: Decreased Breath Sounds (b/l L>R), Rhonchi (b/l scattered) - Cardiovascular Exam Cardiovascular Exam: REGULAR RHYTHM - GI/Abdominal Exam GI & Abdominal Exam: Soft, Normal Bowel Sounds Additional comments: Peg tube - Extremities Exam Extremities Exam: Normal Inspection - Neurological Exam Neurological Exam: Alert, Oriented x3 Additional comments: No focal motor/sensory deficit. - Skin Skin Exam: Warm Additional comments: Multiple ecchymosis on arms and legs b/l Assessment and Plan (1) Laryngeal malignant neoplasm Status: Acute (2) Lung metastasis Status: Acute (3) Collapse of left lung Status: Acute (4) PNA (pneumonia) Status: Acute (5) Anemia Status: Acute - Assessment and Plan (Free Text) Plan: Continue Zithomax, Vanco, Duoneb, Mucomyst, Percocet and rest of Tx.
[2017-12-19] MEDS: Albuterol-Ipratrop 3 mg / 0.5 (3 ml) UD INH SCH ×6 (05:21→23:56)
[2017-12-19] MEDS: Acetylcysteine 10% 4 ML IH SCH ×3 (07:52→19:25)
[2017-12-19 08:13] LABS: HEMOGLOBIN 7.9 g/dL (12.0-18.0); MEAN CELL VOLUME 89.2 fl (80.0-94.0); MEAN CORPUSCULAR HEMOGLOBIN 28.5 pg (27.0-31.0); RBC 2.78 Mil/uL (4.40-5.90); RED CELL DISTRIBUTION WIDTH 20.4 % (11.5-14.5); WHITE BLOOD COUNT 7.4 K/uL (4.8-10.8)
[2017-12-19] MEDS: Pantoprazole 40 mg Susp UD GT SCH (09:33)
[2017-12-19] MEDS: Azithromycin 500 MG in Sodium Chloride 0.9% 250 ML IVPB SCH (09:40)
[2017-12-19 12:58] LABS: URINE BILIRUBIN NEGATIVE (NEGATIVE); URINE BLOOD LARGE (NEGATIVE); URINE CLARITY SLIGHTY-CLOUDY (Clear); URINE COLOR YELLOW (YELLOW); URINE GLUCOSE (UA) NEG (Normal); URINE LEUKOCYTE ESTERASE NEG Leu/uL (Negative); URINE PROTEIN 30 mg/dL (NEGATIVE); URINE UROBILINOGEN 0.2-1.0 mg/dL (0.2-1.0)
--- NOTE | 2017-12-19 15:50 | CP.PCM.PN ---
Subjective - Date & Time of Evaluation Date of Evaluation: 12/19/17 - Subjective Subjective: F/U Laryngeal Neoplasm with lung metastasis. Pt awake, alert, no c/o, non productive cough. Objective - Vital Signs/Intake and Output Vital Signs (last 24 hours): Temp Pulse Resp BP Pulse Ox 98 F 110 H 22 120/60 95 12/19/17 14:59 12/19/17 14:59 12/19/17 14:59 12/19/17 14:59 12/19/17 12:00 Intake and Output: 12/19/17 12/19/17 06:59 18:59 Intake Total 1550 0 Balance 1550 0 - Medications Medications: Current Medications Acetaminophen (Tylenol 650 Mg Supp) 650 mg OR Q6 PRN PRN Reason: Fever >100.4 F Last Admin: 12/17/17 20:38 Dose: 650 mg Acetylcysteine (Mucomyst 10% 4ml) 3 ml IH RTID RHEA Last Admin: 12/19/17 15:21 Dose: 3 ml Albuterol/Ipratropium (Duoneb 3 Mg/0.5 Mg (3 Ml) Ud) 3 ml INH RQ4 RHEA Last Admin: 12/19/17 15:20 Dose: 3 ml Dextrose (Dextrose 50% Inj) 0 ml IV STAT PRN; Protocol PRN Reason: Hypoglycemia Protocol Last Admin: 12/15/17 22:50 Dose: 50 ml Dextrose (Glutose 15) 0 gm PO ONCE PRN; Protocol PRN Reason: Hypoglycemia Protocol Gabapentin (Neurontin) 300 mg GT Q8 RHEA Last Admin: 12/19/17 09:33 Dose: 300 mg Glucagon (Glucagen Diagnostic Kit) 0 mg IM STAT PRN; Protocol PRN Reason: Hypoglycemia Protocol Last Admin: 12/16/17 18:11 Dose: 1 mg Vancomycin HCl 1 gm/ Sodium (Chloride) 250 mls @ 250 mls/hr IVPB Q12 RHEA; Protocol Last Admin: 12/19/17 11:15 Dose: 250 mls/hr Methadone HCl (Methadone) 80 mg GT DAILY RHEA Last Admin: 12/19/17 09:45 Dose: 80 mg Methadone HCl (Methadone) 5 mg GT DAILY RHEA Last Admin: 12/19/17 09:45 Dose: 5 mg Olanzapine (Zyprexa) 15 mg PO HS RHEA Last Admin: 12/18/17 22:03 Dose: 15 mg Oxycodone/Acetaminophen (Percocet 5/325 Mg Tab) 1 tab PO Q4 PRN PRN Reason: Pain, severe (8-10) Last Admin: 12/17/17 16:27 Dose: 1 tab Pantoprazole Sodium (Protonix Susp) 40 mg GT DAILY RHEA Last Admin: 12/19/17 09:33 Dose: 40 mg - Labs Labs: 12/19/17 06:30 12/18/17 06:00 PT 13.6 Seconds (9.8-13.1) H 12/18/17 06:00 INR 1.2 12/18/17 06:00 APTT 31.4 Seconds (25.6-37.1) 12/18/17 06:00 - Constitutional Appears: Chronically Ill - Head Exam Head Exam: NORMAL INSPECTION - Eye Exam Eye Exam: PERRL - ENT Exam Additional comments: L jaw line swelling - Neck Exam Neck Exam: Tenderness (L ) Additional comments: Mass in L cervical area with firm consistency - Respiratory Exam Respiratory Exam: Decreased Breath Sounds (b/l), Rhonchi (scattered b/l) - Cardiovascular Exam Cardiovascular Exam: REGULAR RHYTHM - GI/Abdominal Exam GI & Abdominal Exam: Soft, Normal Bowel Sounds Additional comments: Peg tube in place - Extremities Exam Extremities Exam: Normal Inspection - Neurological Exam Neurological Exam: Alert, Awake, Oriented x3 Additional comments: No focal motor/sensory deficit. - Skin Skin Exam: Warm Additional comments: Multiple Ecchymosis on hands and legs. Assessment and Plan (1) Laryngeal malignant neoplasm Status: Acute (2) Lung metastasis Status: Acute (3) Collapse of left lung Status: Acute (4) PNA (pneumonia) Status: Acute (5) Anemia Status: Acute - Assessment and Plan (Free Text) Plan: Continue O2 NC 2 L/M, Vanco, Methadone, Duoneb, Mucomyst and rest of Tx.
[2017-12-20] MEDS: Albuterol-Ipratrop 3 mg / 0.5 (3 ml) UD INH SCH ×6 (03:27→23:30)
[2017-12-20 05:49] LABS: HEMOGLOBIN 9.5 g/dL (12.0-18.0); MEAN CORPUSCULAR HEMOGLOBIN 28.6 pg (27.0-31.0); MEAN CORPUSCULAR HGB CONC 32.2 g/dL (33.0-37.0); RBC 3.32 Mil/uL (4.40-5.90); WHITE BLOOD COUNT 8.6 K/uL (4.8-10.8)
[2017-12-20 06:09] LABS: ALB/GLOB RATIO 0.5 (1.0-2.1); ALBUMIN 2.3 g/dL (3.5-5.0); ALT/SGPT 20 U/L (21-72); AST/SGOT 30 U/L (17-59); BLOOD UREA NITROGEN 17 mg/dl (9-20); CALCIUM 10.4 mg/dL (8.4-10.2); GFR NON-AFRICAN AMERICAN > 60
--- NOTE | 2017-12-20 07:14 | CP.PCM.PN ---
Subjective - Date & Time of Evaluation Date of Evaluation: 12/17/17 Time of Evaluation: 11:00 - Subjective Subjective: Patient has minimal cough but not in distress. Has no fever labs showed Hgb 7.9 CXR yesterday showed opacification of the left lung prob from atelectasis Has no SOB. Objective - Vital Signs/Intake and Output Vital Signs (last 24 hours): Temp Pulse Resp BP Pulse Ox 98.3 F 112 H 20 124/79 92 L 12/20/17 04:45 12/20/17 04:45 12/20/17 04:45 12/20/17 04:45 12/20/17 04:45 - Medications Medications: Current Medications Acetaminophen (Tylenol 650 Mg Supp) 650 mg [place] Q6 PRN PRN Reason: Fever >100.4 F Last Admin: 12/17/17 20:38 Dose: 650 mg Acetylcysteine (Mucomyst 10% 4ml) 3 ml IH RTID RHEA Last Admin: 12/19/17 19:25 Dose: 3 ml Albuterol/Ipratropium (Duoneb 3 Mg/0.5 Mg (3 Ml) Ud) 3 ml INH RQ4 RHEA Last Admin: 12/20/17 03:27 Dose: 3 ml Dextrose (Dextrose 50% Inj) 0 ml IV STAT PRN; Protocol PRN Reason: Hypoglycemia Protocol Last Admin: 12/15/17 22:50 Dose: 50 ml Dextrose (Glutose 15) 0 gm PO ONCE PRN; Protocol PRN Reason: Hypoglycemia Protocol Gabapentin (Neurontin) 300 mg GT Q8 RHEA Last Admin: 12/20/17 00:29 Dose: 300 mg Glucagon (Glucagen Diagnostic Kit) 0 mg IM STAT PRN; Protocol PRN Reason: Hypoglycemia Protocol Last Admin: 12/16/17 18:11 Dose: 1 mg Vancomycin HCl 1 gm/ Sodium (Chloride) 250 mls @ 250 mls/hr IVPB Q12 RHEA; Protocol Last Admin: 12/19/17 21:20 Dose: 250 mls/hr Methadone HCl (Methadone) 80 mg GT DAILY RHEA Last Admin: 12/19/17 09:45 Dose: 80 mg Methadone HCl (Methadone) 5 mg GT DAILY RHEA Last Admin: 12/19/17 09:45 Dose: 5 mg Olanzapine (Zyprexa) 15 mg PO HS RHEA Last Admin: 12/19/17 21:21 Dose: 15 mg Pantoprazole Sodium (Protonix Susp) 40 mg GT DAILY RHEA Last Admin: 12/19/17 09:33 Dose: 40 mg - Labs Labs: 12/20/17 05:00 12/20/17 05:00 PT 13.6 Seconds (9.8-13.1) H 12/18/17 06:00 INR 1.2 12/18/17 06:00 APTT 31.4 Seconds (25.6-37.1) 12/18/17 06:00 - Head Exam Head Exam: NORMAL INSPECTION - Eye Exam Eye Exam: Normal appearance - Respiratory Exam Respiratory Exam: Decreased Breath Sounds - Cardiovascular Exam Cardiovascular Exam: REGULAR RHYTHM - GI/Abdominal Exam GI & Abdominal Exam: Soft Assessment and Plan (1) Anemia Status: Acute (2) Collapse of left lung Status: Acute (3) Laryngeal malignant neoplasm Status: Acute (4) Lung metastasis Status: Acute - Assessment and Plan (Free Text) Plan: Cont meds repeat CXR in am neb tx follow up with Dr Dunlap
--- NOTE | 2017-12-20 07:17 | CP.PCM.PN ---
Subjective - Date & Time of Evaluation Date of Evaluation: 12/18/17 Time of Evaluation: 17:00 - Subjective Subjective: Noted elevated Hgb after transfusion But noted very low platelet of 46 CXR showed improvement of atelectasis Has no fever Has minimal cough Stays mostly in bed. Objective - Vital Signs/Intake and Output Vital Signs (last 24 hours): Temp Pulse Resp BP Pulse Ox 98.3 F 112 H 20 124/79 92 L 12/20/17 04:45 12/20/17 04:45 12/20/17 04:45 12/20/17 04:45 12/20/17 04:45 - Medications Medications: Current Medications Acetaminophen (Tylenol 650 Mg Supp) 650 mg [place] Q6 PRN PRN Reason: Fever >100.4 F Last Admin: 12/17/17 20:38 Dose: 650 mg Acetylcysteine (Mucomyst 10% 4ml) 3 ml IH RTID RHEA Last Admin: 12/19/17 19:25 Dose: 3 ml Albuterol/Ipratropium (Duoneb 3 Mg/0.5 Mg (3 Ml) Ud) 3 ml INH RQ4 RHEA Last Admin: 12/20/17 03:27 Dose: 3 ml Dextrose (Dextrose 50% Inj) 0 ml IV STAT PRN; Protocol PRN Reason: Hypoglycemia Protocol Last Admin: 12/15/17 22:50 Dose: 50 ml Dextrose (Glutose 15) 0 gm PO ONCE PRN; Protocol PRN Reason: Hypoglycemia Protocol Gabapentin (Neurontin) 300 mg GT Q8 RHEA Last Admin: 12/20/17 00:29 Dose: 300 mg Glucagon (Glucagen Diagnostic Kit) 0 mg IM STAT PRN; Protocol PRN Reason: Hypoglycemia Protocol Last Admin: 12/16/17 18:11 Dose: 1 mg Vancomycin HCl 1 gm/ Sodium (Chloride) 250 mls @ 250 mls/hr IVPB Q12 RHEA; Protocol Last Admin: 12/19/17 21:20 Dose: 250 mls/hr Methadone HCl (Methadone) 80 mg GT DAILY RHEA Last Admin: 12/19/17 09:45 Dose: 80 mg Methadone HCl (Methadone) 5 mg GT DAILY RHEA Last Admin: 12/19/17 09:45 Dose: 5 mg Olanzapine (Zyprexa) 15 mg PO HS RHEA Last Admin: 12/19/17 21:21 Dose: 15 mg Pantoprazole Sodium (Protonix Susp) 40 mg GT DAILY RHEA Last Admin: 12/19/17 09:33 Dose: 40 mg - Labs Labs: 12/20/17 05:00 12/20/17 05:00 PT 13.6 Seconds (9.8-13.1) H 12/18/17 06:00 INR 1.2 12/18/17 06:00 APTT 31.4 Seconds (25.6-37.1) 12/18/17 06:00 - Head Exam Head Exam: NORMAL INSPECTION - Eye Exam Eye Exam: Normal appearance - ENT Exam ENT Exam: Mucous Membranes Moist - Respiratory Exam Respiratory Exam: Decreased Breath Sounds - Cardiovascular Exam Cardiovascular Exam: REGULAR RHYTHM - GI/Abdominal Exam GI & Abdominal Exam: Normal Bowel Sounds - Neurological Exam Neurological Exam: Awake Assessment and Plan (1) Anemia Status: Acute (2) Collapse of left lung Status: Acute (3) Laryngeal malignant neoplasm Status: Acute (4) Lung metastasis Status: Acute (5) Thrombocytopenia Status: Acute - Assessment and Plan (Free Text) Plan: Cont meds Follow up with oncology follow up with Dr Fabi villeda tx cont antibiotics suggest hospice care.
--- NOTE | 2017-12-20 07:20 | CP.PCM.PN ---
Subjective - Date & Time of Evaluation Date of Evaluation: 12/19/17 Time of Evaluation: 11:00 - Subjective Subjective: patient remains stable Has no chest pain or SOB Afebrile Still with very low platelet 24 and hgb 7.9 Objective - Vital Signs/Intake and Output Vital Signs (last 24 hours): Temp Pulse Resp BP Pulse Ox 98.3 F 112 H 20 124/79 92 L 12/20/17 04:45 12/20/17 04:45 12/20/17 04:45 12/20/17 04:45 12/20/17 04:45 - Medications Medications: Current Medications Acetaminophen (Tylenol 650 Mg Supp) 650 mg [place] Q6 PRN PRN Reason: Fever >100.4 F Last Admin: 12/17/17 20:38 Dose: 650 mg Acetylcysteine (Mucomyst 10% 4ml) 3 ml IH RTID RHEA Last Admin: 12/19/17 19:25 Dose: 3 ml Albuterol/Ipratropium (Duoneb 3 Mg/0.5 Mg (3 Ml) Ud) 3 ml INH RQ4 RHEA Last Admin: 12/20/17 03:27 Dose: 3 ml Dextrose (Dextrose 50% Inj) 0 ml IV STAT PRN; Protocol PRN Reason: Hypoglycemia Protocol Last Admin: 12/15/17 22:50 Dose: 50 ml Dextrose (Glutose 15) 0 gm PO ONCE PRN; Protocol PRN Reason: Hypoglycemia Protocol Gabapentin (Neurontin) 300 mg GT Q8 RHEA Last Admin: 12/20/17 00:29 Dose: 300 mg Glucagon (Glucagen Diagnostic Kit) 0 mg IM STAT PRN; Protocol PRN Reason: Hypoglycemia Protocol Last Admin: 12/16/17 18:11 Dose: 1 mg Vancomycin HCl 1 gm/ Sodium (Chloride) 250 mls @ 250 mls/hr IVPB Q12 RHEA; Protocol Last Admin: 12/19/17 21:20 Dose: 250 mls/hr Methadone HCl (Methadone) 80 mg GT DAILY RHEA Last Admin: 12/19/17 09:45 Dose: 80 mg Methadone HCl (Methadone) 5 mg GT DAILY RHEA Last Admin: 12/19/17 09:45 Dose: 5 mg Olanzapine (Zyprexa) 15 mg PO HS RHEA Last Admin: 12/19/17 21:21 Dose: 15 mg Pantoprazole Sodium (Protonix Susp) 40 mg GT DAILY RHEA Last Admin: 12/19/17 09:33 Dose: 40 mg - Labs Labs: 12/20/17 05:00 12/20/17 05:00 PT 13.6 Seconds (9.8-13.1) H 12/18/17 06:00 INR 1.2 12/18/17 06:00 APTT 31.4 Seconds (25.6-37.1) 12/18/17 06:00 - Head Exam Head Exam: NORMAL INSPECTION - ENT Exam ENT Exam: Mucous Membranes Moist - Respiratory Exam Respiratory Exam: Decreased Breath Sounds - Cardiovascular Exam Cardiovascular Exam: REGULAR RHYTHM - GI/Abdominal Exam GI & Abdominal Exam: Normal Bowel Sounds - Neurological Exam Neurological Exam: Awake Assessment and Plan (1) Anemia Status: Acute (2) Collapse of left lung Status: Acute (3) Laryngeal malignant neoplasm Status: Acute (4) Lung metastasis Status: Acute (5) Thrombocytopenia Status: Acute - Assessment and Plan (Free Text) Plan: Cont meds Cont supportive measures will discuss with family re hospice care.
[2017-12-20] MEDS: Acetylcysteine 10% 4 ML IH SCH ×4 (07:27→19:56)
[2017-12-20 08:19] LABS: ABG ALLEN TEST YES; ARTERIAL BLOOD GAS HCO3 37.9 mmol/L (21-28); ARTERIAL BLOOD GAS HEMOGLOBIN 9.9 g/dL (11.7-17.4); ARTERIAL BLOOD GAS O2 CAPACITY 13.3 mL/dL (16-24); ARTERIAL BLOOD GAS O2 CONTENT 11.9 ML/dL (15-23); ARTERIAL BLOOD GAS O2 SAT 89.2 % (95-98); ARTERIAL BLOOD GAS PCO2 64 mm/Hg (35-45); ARTERIAL BLOOD GAS PH 7.44 (7.35-7.45); ARTERIAL BLOOD GAS PO2 48 mm/Hg (80-100); ARTERIAL BLOOD GAS TCO2 45.5 mmol/L (22-28)
[2017-12-20] MEDS: Pantoprazole 40 mg Susp UD GT SCH (10:14)
[2017-12-20] MEDS: Piperacillin/Tazobact 3.375 GM in Sodium Chloride 0.9% 100 ML IVPB SCH ×3 (10:22→21:31)
--- NOTE | 2017-12-20 10:55 | CP.PCM.PN ---
Subjective - Date & Time of Evaluation Date of Evaluation: 12/20/17 Time of Evaluation: 10:53 - Subjective Subjective: Pt is slowly improving. he is more alert, tolerating the peg tube feedings well. he is still congested, but seems better.CBC improving as well. Will continue same. Objective - Vital Signs/Intake and Output Vital Signs (last 24 hours): Temp Pulse Resp BP Pulse Ox 98.1 F 107 H 18 123/70 93 L 12/20/17 08:00 12/20/17 08:00 12/20/17 09:43 12/20/17 08:00 12/20/17 08:00 - Medications Medications: Current Medications Acetaminophen (Tylenol 650 Mg Supp) 650 mg [place] Q6 PRN PRN Reason: Fever >100.4 F Last Admin: 12/17/17 20:38 Dose: 650 mg Acetylcysteine (Mucomyst 10% 4ml) 3 ml IH RTID RHEA Last Admin: 12/20/17 07:27 Dose: 3 ml Albuterol/Ipratropium (Duoneb 3 Mg/0.5 Mg (3 Ml) Ud) 3 ml INH RQ4 RHEA Last Admin: 12/20/17 07:26 Dose: 3 ml Dextrose (Dextrose 50% Inj) 0 ml IV STAT PRN; Protocol PRN Reason: Hypoglycemia Protocol Last Admin: 12/15/17 22:50 Dose: 50 ml Dextrose (Glutose 15) 0 gm PO ONCE PRN; Protocol PRN Reason: Hypoglycemia Protocol Gabapentin (Neurontin) 300 mg GT Q8 RHEA Last Admin: 12/20/17 10:29 Dose: 300 mg Glucagon (Glucagen Diagnostic Kit) 0 mg IM STAT PRN; Protocol PRN Reason: Hypoglycemia Protocol Last Admin: 12/16/17 18:11 Dose: 1 mg Vancomycin HCl 1 gm/ Sodium (Chloride) 250 mls @ 250 mls/hr IVPB Q12 RHEA; Protocol Last Admin: 12/20/17 10:13 Dose: 250 mls/hr Piperacillin Sod/Tazobactam (Sod 3.375 gm/ Sodium Chloride) 100 mls @ 100 mls/hr IVPB Q6 RHEA; Protocol Last Admin: 12/20/17 10:22 Dose: 100 mls/hr Methadone HCl (Methadone) 80 mg GT DAILY RHEA Last Admin: 12/20/17 10:26 Dose: 80 mg Methadone HCl (Methadone) 5 mg GT DAILY RHEA Last Admin: 12/20/17 10:26 Dose: 5 mg Olanzapine (Zyprexa) 15 mg PO HS RHEA Last Admin: 12/19/17 21:21 Dose: 15 mg Pantoprazole Sodium (Protonix Susp) 40 mg GT DAILY RHEA Last Admin: 12/20/17 10:14 Dose: 40 mg - Labs Labs: 12/20/17 05:00 12/20/17 05:00 PT 13.6 Seconds (9.8-13.1) H 12/18/17 06:00 INR 1.2 12/18/17 06:00 APTT 31.4 Seconds (25.6-37.1) 12/18/17 06:00
--- NOTE | 2017-12-20 12:54 | CP.PCM.PCO ---
Assessment & Plan - Assessment and Plan (Free Text) Assessment: pt. with mild sob, ABG w/ PCO2 64, PO2 48 pt. 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
--- NOTE | 2017-12-20 13:56 | RAD ---
Date of service: 12/20/2017 HISTORY: Congestion COMPARISON: 12/18/2017 FINDINGS: LUNGS: Bilateral rounded masses unchanged from prior. Opacity at left base common nonspecific. PLEURA: Small left pleural effusion. No evidence of right pleural effusion. No pneumothorax. CARDIOVASCULAR: Normal heart size. No congestive change. Right PICC catheter. OSSEOUS STRUCTURES: No significant abnormalities. VISUALIZED UPPER ABDOMEN: Normal. OTHER FINDINGS: None. IMPRESSION: Bilateral pulmonary masses suspicious for malignancy. Opacity at left base common nonspecific. Small left pleural effusion.
--- NOTE | 2017-12-20 18:01 | CP.PCM.PN ---
Subjective - Date & Time of Evaluation Date of Evaluation: 12/20/17 - Subjective Subjective: F/U Laryngeal Neoplasm with Lung metastasis Pt lethargic Objective - Vital Signs/Intake and Output Vital Signs (last 24 hours): Temp Pulse Resp BP Pulse Ox 98.4 F 98 H 16 130/88 93 L 12/20/17 15:55 12/20/17 15:55 12/20/17 15:55 12/20/17 15:55 12/20/17 15:55 - Medications Medications: Current Medications Acetaminophen (Tylenol 650 Mg Supp) 650 mg [place] Q6 PRN PRN Reason: Fever >100.4 F Last Admin: 12/17/17 20:38 Dose: 650 mg Acetylcysteine (Mucomyst 10% 4ml) 3 ml IH RTID RHEA Last Admin: 12/20/17 15:40 Dose: 3 ml Albuterol/Ipratropium (Duoneb 3 Mg/0.5 Mg (3 Ml) Ud) 3 ml INH RQ4 RHEA Last Admin: 12/20/17 15:40 Dose: 3 ml Dextrose (Dextrose 50% Inj) 0 ml IV STAT PRN; Protocol PRN Reason: Hypoglycemia Protocol Last Admin: 12/15/17 22:50 Dose: 50 ml Dextrose (Glutose 15) 0 gm PO ONCE PRN; Protocol PRN Reason: Hypoglycemia Protocol Gabapentin (Neurontin) 300 mg GT Q8 RHEA Last Admin: 12/20/17 10:29 Dose: 300 mg Glucagon (Glucagen Diagnostic Kit) 0 mg IM STAT PRN; Protocol PRN Reason: Hypoglycemia Protocol Last Admin: 12/16/17 18:11 Dose: 1 mg Vancomycin HCl 1 gm/ Sodium (Chloride) 250 mls @ 250 mls/hr IVPB Q12 RHEA; Protocol Last Admin: 12/20/17 10:13 Dose: 250 mls/hr Piperacillin Sod/Tazobactam (Sod 3.375 gm/ Sodium Chloride) 100 mls @ 100 mls/hr IVPB Q6 RHEA; Protocol Last Admin: 12/20/17 10:22 Dose: 100 mls/hr Methadone HCl (Methadone) 80 mg GT DAILY RHEA Last Admin: 12/20/17 10:26 Dose: 80 mg Methadone HCl (Methadone) 5 mg GT DAILY RHEA Last Admin: 12/20/17 10:26 Dose: 5 mg Olanzapine (Zyprexa) 15 mg PO HS RHEA Last Admin: 12/19/17 21:21 Dose: 15 mg Pantoprazole Sodium (Protonix Susp) 40 mg GT DAILY RHEA Last Admin: 12/20/17 10:14 Dose: 40 mg - Labs Labs: 12/20/17 05:00 12/20/17 05:00 PT 13.6 Seconds (9.8-13.1) H 12/18/17 06:00 INR 1.2 12/18/17 06:00 APTT 31.4 Seconds (25.6-37.1) 12/18/17 06:00 - Constitutional Appears: Chronically Ill - Head Exam Head Exam: NORMAL INSPECTION - Eye Exam Eye Exam: PERRL - ENT Exam Additional comments: Tenderness L Jaw - Neck Exam Neck Exam: Tenderness (L neck) Additional comments: Mass in L cervical area with firm consistency. - Respiratory Exam Respiratory Exam: Decreased Breath Sounds (b/l, L>R), Rhonchi (scattered b/l) - Cardiovascular Exam Cardiovascular Exam: REGULAR RHYTHM - GI/Abdominal Exam GI & Abdominal Exam: Soft, Normal Bowel Sounds Additional comments: Peg tube in place - Extremities Exam Extremities Exam: Normal Inspection - Back Exam Back Exam: NORMAL INSPECTION - Neurological Exam Neurological Exam: Alert, Oriented x3 Additional comments: No focal motor/sensory deficit. - Skin Skin Exam: Warm Additional comments: Multiple ecchymosis on arms and legs b/l Assessment and Plan (1) Laryngeal malignant neoplasm Status: Acute (2) Lung metastasis Status: Acute (3) Collapse of left lung Status: Acute (4) PNA (pneumonia) Status: Acute (5) Anemia Status: Acute - Assessment and Plan (Free Text) Plan: Discussed with family options of Palliative care, hospice, Pt's sisters will arrive tomorrow from [place], to have meeting with Social Service tomorrow in AM
[2017-12-21] MEDS: Piperacillin/Tazobact 3.375 GM in Sodium Chloride 0.9% 100 ML IVPB SCH ×4 (04:36→23:33)
[2017-12-21] MEDS: Albuterol-Ipratrop 3 mg / 0.5 (3 ml) UD INH SCH ×6 (04:50→23:58)
[2017-12-21] MEDS ORDERED: Dextrose 50% SYRINGE Inj (50 ml) ONE (05:30)
[2017-12-21] MEDS ORDERED: Dextrose 50% SYRINGE Inj (50 ml) IVP ONE (05:34)
[2017-12-21] MEDS: Dextrose 5%/0.45% NS 1,000 ML IV SCH ×2 (05:38→18:20)
[2017-12-21 06:03] LABS: HEMOGLOBIN 9.6 g/dL (12.0-18.0); MEAN CELL VOLUME 88.9 fl (80.0-94.0); MEAN CORPUSCULAR HGB CONC 32.6 g/dL (33.0-37.0); RBC 3.3 Mil/uL (4.40-5.90); RED CELL DISTRIBUTION WIDTH 20.7 % (11.5-14.5)
[2017-12-21 07:00] LABS: BLOOD UREA NITROGEN 19 mg/dl (9-20); CALCIUM 10.6 mg/dL (8.4-10.2); GFR NON-AFRICAN AMERICAN > 60
[2017-12-21] MEDS: Acetylcysteine 10% 4 ML IH SCH ×3 (07:52→19:28)
[2017-12-21] MEDS: Pantoprazole 40 mg Susp UD GT SCH ×2 (09:34→09:40)
--- NOTE | 2017-12-21 10:18 | CP.PCM.PN ---
Subjective - Date & Time of Evaluation Date of Evaluation: 12/21/17 Time of Evaluation: 09:00 - Subjective Subjective: GI Fellow PGY5 Progress Note Pt seen and evaluated at bedside, pt lethargic, unarousable. Pt pulled out PEG last night. ROS: A 12pt ROS was unable to be obtained due to AMS. Objective - Vital Signs/Intake and Output Vital Signs (last 24 hours): Temp Pulse Resp BP Pulse Ox 98.1 F 93 H 20 109/69 93 L 12/21/17 08:00 12/21/17 08:00 12/21/17 08:00 12/21/17 08:00 12/21/17 08:00 - Medications Medications: Current Medications Acetaminophen (Tylenol 650 Mg Supp) [address] Q6 PRN PRN Reason: Fever >100.4 F Last Admin: 12/17/17 20:38 Dose: 650 mg Acetylcysteine (Mucomyst 10% 4ml) 3 ml IH RTID RHEA Last Admin: 12/21/17 07:52 Dose: 3 ml Albuterol/Ipratropium (Duoneb 3 Mg/0.5 Mg (3 Ml) Ud) 3 ml INH RQ4 RHEA Last Admin: 12/21/17 07:52 Dose: 3 ml Alprazolam (Xanax) 0.25 mg PO Q12 PRN PRN Reason: Agitation Stop: 12/28/17 08:45 Dextrose (Dextrose 50% Inj) 0 ml IV STAT PRN; Protocol PRN Reason: Hypoglycemia Protocol Last Admin: 12/15/17 22:50 Dose: 50 ml Dextrose (Glutose 15) 0 gm PO ONCE PRN; Protocol PRN Reason: Hypoglycemia Protocol Gabapentin (Neurontin) 300 mg GT Q8 RHEA Last Admin: 12/21/17 09:50 Dose: 300 mg Glucagon (Glucagen Diagnostic Kit) 0 mg IM STAT PRN; Protocol PRN Reason: Hypoglycemia Protocol Last Admin: 12/16/17 18:11 Dose: 1 mg Vancomycin HCl 1 gm/ Sodium (Chloride) 250 mls @ 250 mls/hr IVPB Q12 RHEA; Protocol Last Admin: 12/21/17 09:36 Dose: 250 mls/hr Piperacillin Sod/Tazobactam (Sod 3.375 gm/ Sodium Chloride) 100 mls @ 100 mls/hr IVPB Q6 RHEA; Protocol Last Admin: 12/21/17 09:48 Dose: 100 mls/hr Dextrose/Sodium Chloride (Dextrose 5%/0.45% Ns 1000 Ml) 1,000 mls @ 80 mls/hr IV .[id number] COUNTS INCLUDE 234 BEDS AT THE [facility] Stop: 12/22/17 05:35 Last Admin: 12/21/17 05:38 Dose: 80 mls/hr Methadone HCl (Methadone) 80 mg GT DAILY COUNTS INCLUDE 234 BEDS AT THE [facility] Last Admin: 12/21/17 09:49 Dose: 80 mg Methadone HCl (Methadone) 5 mg GT DAILY COUNTS INCLUDE 234 BEDS AT THE [facility] Last Admin: 12/21/17 09:49 Dose: 5 mg Olanzapine (Zyprexa) 15 mg PO HS COUNTS INCLUDE 234 BEDS AT THE [facility] Last Admin: 12/20/17 21:31 Dose: 15 mg Pantoprazole Sodium (Protonix Susp) 40 mg GT DAILY COUNTS INCLUDE 234 BEDS AT THE [facility] Last Admin: 12/21/17 09:40 Dose: 40 mg - Labs Labs: 12/21/17 04:25 12/21/17 04:25 PT 13.6 Seconds (9.8-13.1) H 12/18/17 06:00 INR 1.2 12/18/17 06:00 APTT 31.4 Seconds (25.6-37.1) 12/18/17 06:00 - Constitutional Appears: Confused, Chronically Ill - Head Exam Head Exam: ATRAUMATIC, NORMAL INSPECTION, NORMOCEPHALIC - ENT Exam ENT Exam: Mucous Membranes Dry - Respiratory Exam Respiratory Exam: Rhonchi, Wheezes - Cardiovascular Exam Cardiovascular Exam: Tachycardia, +S1, +S2 - GI/Abdominal Exam GI & Abdominal Exam: Soft, Normal Bowel Sounds. absent: Distended, Firm, Guarding, Tenderness Additional comments: PEG site open with TF leaking - Extremities Exam Extremities Exam: Pedal Edema - Skin Skin Exam: Dry, Intact, Normal Color, Warm Assessment and Plan - Assessment and Plan (Free Text) Assessment: 1. Metastatic laryngeal cancer 2. Anemia 3. s/p PEG 4. Facial swelling and pain Plan: -Continue supportive care with pain control and anti-emetics -No active GI bleeding -PEG replaced at bedside with 18Fr, ready to use -Continue to po PPI daily via PEG since pt is on OAC -Continue Tube Feeds and water flushes per primary team -Plan for family meeting for hospice -Please call with any questions or concerns
--- NOTE | 2017-12-21 11:31 | CP.PCM.PN ---
Subjective - Date & Time of Evaluation Date of Evaluation: 12/21/17 Time of Evaluation: 11:29 - Subjective Subjective: Pt is being evaluated for Hospice care. Will sign off case Objective - Vital Signs/Intake and Output Vital Signs (last 24 hours): Temp Pulse Resp BP Pulse Ox 98.1 F 93 H 20 109/69 93 L 12/21/17 08:00 12/21/17 08:00 12/21/17 08:00 12/21/17 08:00 12/21/17 08:00 - Medications Medications: Current Medications Acetaminophen (Tylenol 650 Mg Supp) 650 mg TN Q6 PRN PRN Reason: Fever >100.4 F Last Admin: 12/17/17 20:38 Dose: 650 mg Acetylcysteine (Mucomyst 10% 4ml) 3 ml IH RTID RHEA Last Admin: 12/21/17 07:52 Dose: 3 ml Albuterol/Ipratropium (Duoneb 3 Mg/0.5 Mg (3 Ml) Ud) 3 ml INH RQ4 RHEA Last Admin: 12/21/17 07:52 Dose: 3 ml Alprazolam (Xanax) 0.25 mg PO Q12 PRN PRN Reason: Agitation Stop: 12/28/17 08:45 Dextrose (Dextrose 50% Inj) 0 ml IV STAT PRN; Protocol PRN Reason: Hypoglycemia Protocol Last Admin: 12/15/17 22:50 Dose: 50 ml Dextrose (Glutose 15) 0 gm PO ONCE PRN; Protocol PRN Reason: Hypoglycemia Protocol Gabapentin (Neurontin) 300 mg GT Q8 RHEA Last Admin: 12/21/17 09:50 Dose: 300 mg Glucagon (Glucagen Diagnostic Kit) 0 mg IM STAT PRN; Protocol PRN Reason: Hypoglycemia Protocol Last Admin: 12/16/17 18:11 Dose: 1 mg Vancomycin HCl 1 gm/ Sodium (Chloride) 250 mls @ 250 mls/hr IVPB Q12 RHEA; Protocol Last Admin: 12/21/17 09:36 Dose: 250 mls/hr Piperacillin Sod/Tazobactam (Sod 3.375 gm/ Sodium Chloride) 100 mls @ 100 mls/hr IVPB Q6 RHEA; Protocol Last Admin: 12/21/17 09:48 Dose: 100 mls/hr Dextrose/Sodium Chloride (Dextrose 5%/0.45% Ns 1000 Ml) 1,000 mls @ 80 mls/hr IV .[id number] RHEA Stop: 12/22/17 05:35 Last Admin: 12/21/17 05:38 Dose: 80 mls/hr Methadone HCl (Methadone) 80 mg GT DAILY RHEA Last Admin: 12/21/17 09:49 Dose: 80 mg Methadone HCl (Methadone) 5 mg GT DAILY RHEA Last Admin: 12/21/17 09:49 Dose: 5 mg Olanzapine (Zyprexa) 15 mg PO HS RHEA Last Admin: 12/20/17 21:31 Dose: 15 mg Pantoprazole Sodium (Protonix Susp) 40 mg GT DAILY RHEA Last Admin: 12/21/17 09:40 Dose: 40 mg - Labs Labs: 12/21/17 04:25 12/21/17 04:25 PT 13.6 Seconds (9.8-13.1) H 12/18/17 06:00 INR 1.2 12/18/17 06:00 APTT 31.4 Seconds (25.6-37.1) 12/18/17 06:00
--- NOTE | 2017-12-21 12:41 | PQF ---
PROVIDER RESPONSE TEXT: Admitted due to gi bleed, though not active at this time. REVIEWER QUERY TEXT: Clinical Validity Additional clinical indicators are required to support your documented diagnosis. Please clarify if UGI Bleed is ruled in or ruled out. If ruled in please clarify the etiology. If rul ed out please clarify reason for admission GI resident: No active GI Bleed. Progress notes from 12/17 to current date has no mention of UGI Bleed. Please clarify if UGI Bleed is ruled in or ruled out. If ruled in please clarify the etiology. If rul ed out please clarify reason for admission Please respond and also state in your next progress note whether: -- Condition exists and also please provide clinical indicators to support the diagnosis -- Condition does not exist and also please provide amended documentation in the medical record to kathie hernandez -- Unable to provide additional clarity regarding the diagnosis -- Other, please specify The patient's Clinical Indicators include: Admitted with weakness, vomiting black material. Stool for occult blood positive. Transfused PRBC. Query created by: Dunia Amaro on 12/20/2017 11:20 AM Electronically signed by: Eleazar Casarez 12/21/2017 12:38 PM
--- NOTE | 2017-12-21 12:59 | CP.PCM.PN ---
Subjective - Date & Time of Evaluation Date of Evaluation: 12/21/17 Time of Evaluation: 11:00 - Subjective Subjective: patient seen and examined at bedside. continues to be lethargic. hospice eval in place. no acute events overnight. Objective - Vital Signs/Intake and Output Vital Signs (last 24 hours): Temp Pulse Resp BP Pulse Ox 97.9 F 101 H 20 128/73 91 L 12/21/17 12:00 12/21/17 12:00 12/21/17 12:00 12/21/17 12:00 12/21/17 12:00 - Medications Medications: Current Medications Acetaminophen (Tylenol 650 Mg Supp) 650 mg [place] Q6 PRN PRN Reason: Fever >100.4 F Last Admin: 12/17/17 20:38 Dose: 650 mg Acetylcysteine (Mucomyst 10% 4ml) 3 ml IH RTID RHEA Last Admin: 12/21/17 07:52 Dose: 3 ml Albuterol/Ipratropium (Duoneb 3 Mg/0.5 Mg (3 Ml) Ud) 3 ml INH RQ4 REHA Last Admin: 12/21/17 11:33 Dose: 3 ml Alprazolam (Xanax) 0.25 mg PO Q12 PRN PRN Reason: Agitation Stop: 12/28/17 08:45 Dextrose (Dextrose 50% Inj) 0 ml IV STAT PRN; Protocol PRN Reason: Hypoglycemia Protocol Last Admin: 12/15/17 22:50 Dose: 50 ml Dextrose (Glutose 15) 0 gm PO ONCE PRN; Protocol PRN Reason: Hypoglycemia Protocol Gabapentin (Neurontin) 300 mg GT Q8 RHEA Last Admin: 12/21/17 09:50 Dose: 300 mg Glucagon (Glucagen Diagnostic Kit) 0 mg IM STAT PRN; Protocol PRN Reason: Hypoglycemia Protocol Last Admin: 12/16/17 18:11 Dose: 1 mg Vancomycin HCl 1 gm/ Sodium (Chloride) 250 mls @ 250 mls/hr IVPB Q12 RHEA; Protocol Last Admin: 12/21/17 09:36 Dose: 250 mls/hr Piperacillin Sod/Tazobactam (Sod 3.375 gm/ Sodium Chloride) 100 mls @ 100 mls/hr IVPB Q6 RHEA; Protocol Last Admin: 12/21/17 09:48 Dose: 100 mls/hr Dextrose/Sodium Chloride (Dextrose 5%/0.45% Ns 1000 Ml) 1,000 mls @ 80 mls/hr IV .[id number] RHEA Stop: 12/22/17 05:35 Last Admin: 12/21/17 05:38 Dose: 80 mls/hr Methadone HCl (Methadone) 80 mg GT DAILY RHEA Last Admin: 12/21/17 09:49 Dose: 80 mg Methadone HCl (Methadone) 5 mg GT DAILY RHEA Last Admin: 12/21/17 09:49 Dose: 5 mg Olanzapine (Zyprexa) 15 mg PO HS [facility] Last Admin: 12/20/17 21:31 Dose: 15 mg Pantoprazole Sodium (Protonix Susp) 40 mg GT DAILY [facility] Last Admin: 12/21/17 09:40 Dose: 40 mg - Labs Labs: 12/21/17 04:25 12/21/17 04:25 PT 13.6 Seconds (9.8-13.1) H 12/18/17 06:00 INR 1.2 12/18/17 06:00 APTT 31.4 Seconds (25.6-37.1) 12/18/17 06:00 - Constitutional Appears: Chronically Ill - Respiratory Exam Respiratory Exam: NORMAL BREATHING PATTERN - Cardiovascular Exam Cardiovascular Exam: +S1, +S2 - Skin Skin Exam: Normal Color, Warm Assessment and Plan - Assessment and Plan (Free Text) Assessment: continue supportive measures hospice eval in place plan as ordered
--- NOTE | 2017-12-21 15:02 | CP.PCM.PN ---
Subjective - Date & Time of Evaluation Date of Evaluation: 12/21/17 Time of Evaluation: 11:00 - Subjective Subjective: F/U Laryngeal Neoplasm with metastasis. Pt lethargic, non arousable to verbal or tactile stimuli Objective - Vital Signs/Intake and Output Vital Signs (last 24 hours): Temp Pulse Resp BP Pulse Ox 97.9 F 101 H 20 128/73 91 L 12/21/17 12:00 12/21/17 12:00 12/21/17 14:29 12/21/17 12:00 12/21/17 12:00 - Medications Medications: Current Medications Acetaminophen (Tylenol 650 Mg Supp) 650 mg [place] Q6 PRN PRN Reason: Fever >100.4 F Last Admin: 12/17/17 20:38 Dose: 650 mg Acetylcysteine (Mucomyst 10% 4ml) 3 ml IH RTID RHEA Last Admin: 12/21/17 07:52 Dose: 3 ml Albuterol/Ipratropium (Duoneb 3 Mg/0.5 Mg (3 Ml) Ud) 3 ml INH RQ4 RHEA Last Admin: 12/21/17 11:33 Dose: 3 ml Alprazolam (Xanax) 0.25 mg PO Q12 PRN PRN Reason: Agitation Stop: 12/28/17 08:45 Dextrose (Dextrose 50% Inj) 0 ml IV STAT PRN; Protocol PRN Reason: Hypoglycemia Protocol Last Admin: 12/15/17 22:50 Dose: 50 ml Dextrose (Glutose 15) 0 gm PO ONCE PRN; Protocol PRN Reason: Hypoglycemia Protocol Gabapentin (Neurontin) 300 mg GT Q8 RHEA Last Admin: 12/21/17 09:50 Dose: 300 mg Glucagon (Glucagen Diagnostic Kit) 0 mg IM STAT PRN; Protocol PRN Reason: Hypoglycemia Protocol Last Admin: 12/16/17 18:11 Dose: 1 mg Vancomycin HCl 1 gm/ Sodium (Chloride) 250 mls @ 250 mls/hr IVPB Q12 RHEA; Protocol Last Admin: 12/21/17 09:36 Dose: 250 mls/hr Piperacillin Sod/Tazobactam (Sod 3.375 gm/ Sodium Chloride) 100 mls @ 100 ml s/hr IVPB Q6 RHEA; Protocol Last Admin: 12/21/17 09:48 Dose: 100 mls/hr Dextrose/Sodium Chloride (Dextrose 5%/0.45% Ns 1000 Ml) 1,000 mls @ 80 mls/hr IV .[id number] [facility] Stop: 12/22/17 05:35 Last Admin: 12/21/17 05:38 Dose: 80 mls/hr Methadone HCl (Methadone) 80 mg GT DAILY [facility] Last Admin: 12/21/17 09:49 Dose: 80 mg Methadone HCl (Methadone) 5 mg GT DAILY [facility] Last Admin: 12/21/17 09:49 Dose: 5 mg Olanzapine (Zyprexa) 15 mg PO HS [facility] Last Admin: 12/20/17 21:31 Dose: 15 mg Pantoprazole Sodium (Protonix Susp) 40 mg GT DAILY [facility] Last Admin: 12/21/17 09:40 Dose: 40 mg - Labs Labs: 12/21/17 04:25 12/21/17 04:25 PT 13.6 Seconds (9.8-13.1) H 12/18/17 06:00 INR 1.2 12/18/17 06:00 APTT 31.4 Seconds (25.6-37.1) 12/18/17 06:00 - Constitutional Appears: Chronically Ill - Head Exam Head Exam: NORMAL INSPECTION - Eye Exam Eye Exam: PERRL - ENT Exam Additional comments: Tenderness L Jaw - Neck Exam Neck Exam: Tenderness (L neck ) Additional comments: Mass L cervical area with firm consistency - Respiratory Exam Respiratory Exam: Decreased Breath Sounds (b/l L>R), Rhonchi (scattered b/l) - Cardiovascular Exam Cardiovascular Exam: REGULAR RHYTHM - GI/Abdominal Exam GI & Abdominal Exam: Soft Additional comments: Peg tube in place - Extremities Exam Extremities Exam: Normal Inspection - Neurological Exam Additional comments: Lethargic, non arousable to verbal or tactil stimuli, generalized weakness. - Skin Skin Exam: Warm Additional comments: Multiple ecchymosis on arms and legs b/l. Assessment and Plan (1) Laryngeal malignant neoplasm Status: Acute (2) Lung metastasis Status: Acute (3) Collapse of left lung Status: Acute (4) PNA (pneumonia) Status: Acute (5) Anemia Status: Acute - Assessment and Plan (Free Text) Plan: Pt's family agree Pt to be placed in hospice, continue current Tx.
[2017-12-22] MEDS: Piperacillin/Tazobact 3.375 GM in Sodium Chloride 0.9% 100 ML IVPB SCH (03:43)
[2017-12-22] MEDS: Albuterol-Ipratrop 3 mg / 0.5 (3 ml) UD INH SCH ×3 (04:06→11:30)
[2017-12-22] MEDS ORDERED: Glucagon Recombinant 1 mg Inj IM PRN (05:43)
[2017-12-22] MEDS ORDERED: Dextrose 50% SYRINGE Inj (50 ml) IVP PRN (05:43)
[2017-12-22] MEDS ORDERED: Albuterol 0.083% Inhal Sol (2.5 mg/3 mL) UD INH PRN (05:48)
[2017-12-22] MEDS ORDERED: Albuterol-Ipratrop 3 mg / 0.5 (3 ml) UD ONE (05:56)
[2017-12-22] MEDS: Acetylcysteine 10% 4 ML IH SCH ×2 (08:29→11:31)
[2017-12-22] MEDS: Pantoprazole 40 mg Susp UD GT SCH ×2 (08:45→09:42)
[2017-12-22] MEDS ORDERED: Chlorhexidine Gluconate 1 APPL/PKT TP ONE (09:32)
--- NOTE | 2017-12-22 10:02 | CP.PCM.PN ---
Subjective - Date & Time of Evaluation Date of Evaluation: 12/22/17 Time of Evaluation: 09:00 - Subjective Subjective: GI Fellow PGY5 Progress Note Pt seen and evaluated at bedside,pt lethargic. Per nursing overnight,PEG balloon deflated or pulled out? ROS: A 12pt ROS was negative except as above. Objective - Vital Signs/Intake and Output Vital Signs (last 24 hours): Temp Pulse Resp BP Pulse Ox 97.6 F 97 H 20 107/70 96 12/22/17 08:00 12/22/17 08:00 12/22/17 08:00 12/22/17 08:00 12/22/17 08:00 - Medications Medications: Current Medications Acetaminophen (Tylenol 650 Mg Supp) 650 mg MS Q6 PRN PRN Reason: Fever >100.4 F Last Admin: 12/17/17 20:38 Dose: 650 mg Acetylcysteine (Mucomyst 10% 4ml) 3 ml IH RTID RHEA Last Admin: 12/21/17 19:28 Dose: 3 ml Albuterol Sulfate (Albuterol 0.083% Inhal Anahy (2.5 Mg/3 Ml) Ud) 2.5 mg INH RQ6 PRN PRN Reason: Shortness of Breath Last Admin: 12/22/17 05:58 Dose: 2.5 mg Albuterol/Ipratropium (Duoneb 3 Mg/0.5 Mg (3 Ml) Ud) 3 ml INH RQ4 RHEA Last Admin: 12/22/17 08:29 Dose: 3 ml Alprazolam (Xanax) 0.25 mg PO Q12 PRN PRN Reason: Agitation Stop: 12/28/17 08:45 Dextrose (Dextrose 50% Inj) 0 ml IV STAT PRN; Protocol PRN Reason: Hypoglycemia Protocol Last Admin: 12/15/17 22:50 Dose: 50 ml Dextrose (Glutose 15) 0 gm PO ONCE PRN; Protocol PRN Reason: Hypoglycemia Protocol Dextrose (Dextrose 50% Inj) 0 ml IVP STAT PRN; Protocol PRN Reason: Hypoglycemia Protocol Last Admin: 12/22/17 06:48 Dose: 50 ml Gabapentin (Neurontin) 300 mg GT Q8 RHEA Last Admin: 12/22/17 09:44 Dose: 300 mg Glucagon (Glucagen Diagnostic Kit) 0 mg IM STAT PRN; Protocol PRN Reason: Hypoglycemia Protocol Last Admin: 12/16/17 18:11 Dose: 1 mg Glucagon (Glucagen Diagnostic Kit) 0 mg IM STAT PRN; Protocol PRN Reason: Hypoglycemia Protocol Vancomycin HCl 1 gm/ Sodium (Chloride) 250 mls @ 250 mls/hr IVPB Q12 RHEA; Protocol Last Admin: 12/22/17 08:47 Dose: 250 mls/hr Methadone HCl (Methadone) 80 mg GT DAILY RHEA Last Admin: 12/22/17 08:43 Dose: Not Given Methadone HCl (Methadone) 5 mg GT DAILY RHEA Last Admin: 12/22/17 08:44 Dose: Not Given Olanzapine (Zyprexa) 15 mg PO HS RHEA Last Admin: 12/21/17 22:45 Dose: Not Given Pantoprazole Sodium (Protonix Susp) 40 mg GT DAILY [facility] Last Admin: 12/22/17 09:42 Dose: 40 mg - Labs Labs: 12/21/17 04:25 12/21/17 04:25 PT 13.6 Seconds (9.8-13.1) H 12/18/17 06:00 INR 1.2 12/18/17 06:00 APTT 31.4 Seconds (25.6-37.1) 12/18/17 06:00 - Constitutional Appears: Confused, Chronically Ill - Head Exam Head Exam: ATRAUMATIC, NORMAL INSPECTION, NORMOCEPHALIC - ENT Exam ENT Exam: Mucous Membranes Dry - Respiratory Exam Respiratory Exam: Rhonchi, Respiratory Distress - Cardiovascular Exam Cardiovascular Exam: +S1, +S2 - GI/Abdominal Exam GI & Abdominal Exam: Soft, Normal Bowel Sounds. absent: Distended, Firm, Guarding, Tenderness - Rectal Exam Rectal Exam: Deferred - Skin Skin Exam: Dry, Intact, Normal Color, Warm Assessment and Plan - Assessment and Plan (Free Text) Assessment: 1. Metastatic laryngeal cancer 2. Anemia 3. s/p PEG 4. Facial swelling and pain Plan: -Continue supportive care with pain control and anti-emetics -No active GI bleeding -PEG pulled out, reinserted at bedside with 18Fr, ready to use, if deflates again will replace with a different PEG -Continue to po PPI daily via PEG since pt is on OAC -Continue Tube Feeds and water flushes per primary team -Plan for Hospice -Please call with any questions or concerns
[2017-12-22 10:39] VITALS: PULSE 97; TEMP 97.6
[2017-12-22 11:53] VITALS: BP 113/70; RESP 20; O2SAT 94
--- NOTE | 2017-12-22 13:11 | VASCULAR ---
PROCEDURE: Date of procedure: 12/17/2017 Procedure: 1. Placement of a right arm PICC with ultrasound and fluoroscopic guidance, CPT 45290 2. PICC tip confirmation with spot radiograph and is in the superior vena cava Medications: 1 percent lidocaine Total Fluoro time: 9.1 Seconds Radiation: 0.77 MGy EBL: 2 cc HISTORY: Infection requiring long-term IV antibiotics TECHNIQUE: Following informed consent and procedure time-out, the patient was placed supine on the interventional table and the right arm prepped and draped in the usual sterile fashion. Ultrasound showed a patent and compressible right basilic vein. After the skin was anesthetized with lidocaine, the basilic vein was accessed with micro micropuncture technique using ultrasound guidance. A guidewire was then advanced under fluoroscopic guidance into the superior vena cava. An image documenting ultrasound guidance for vascular access was permanently saved. The length of the single-lumen 4 [place] PICC was trimmed to 40 centimeters and advanced through a peel-away sheath. The PICC was position with tip of PICC confirm a spot radiograph the superior vena cava. The PICC was secured to the patient's skin. The PICC was flushed. A biopatch and sterile dressing was applied. IMPRESSION: Placement of a single-lumen 4 [place] PICC trimmed to 40 centimeters via right basilic vein. The tip of the PICC is confirmed with spot radiograph and is in the superior vena cava.
--- NOTE | 2017-12-22 14:09 | CP.PCM.DIS ---
Provider - Provider Date of Admission: 12/14/17 20:18 Attending physician: Eleazar Casarez MD Time Spent in preparation of Discharge (in minutes): 37 Diagnosis - Discharge Diagnosis (1) Lung metastasis Status: Acute (2) Laryngeal malignant neoplasm Status: Acute (3) Anemia Status: Acute (4) Dehydration Status: Acute Hospital Course - Lab Results Lab Results: Micro Results 12/17/17 20:39 Blood Blood Culture - Preliminary NO GROWTH AFTER 4 DAYS 12/17/17 20:19 Blood Blood Culture - Preliminary NO GROWTH AFTER 4 DAYS 12/19/17 12:40 Urine,Clean Catch Urine Culture - Final No Growth (<1,000 CFU/ML) 12/14/17 16:00 Blood Blood Culture - Final NO GROWTH AFTER 5 DAYS 12/14/17 16:00 Blood Gram Stain - Final TEST NOT PERFORMED 12/15/17 03:00 Urine,Clean Catch Urine Culture - Final No Growth (<1,000 CFU/ML) 12/14/17 17:00 Throat Group A Strep Throat Culture - Final NO BETA STREP GROUP A ISOLATED. Most Recent Lab Values WBC 7.0 K/uL (4.8-10.8) 12/21/17 04:25 RBC 3.30 Mil/uL (4.40-5.90) L 12/21/17 04:25 Hgb 9.6 g/dL (12.0-18.0) L 12/21/17 04:25 Hct 29.3 % (35.0-51.0) L 12/21/17 04:25 MCV 88.9 fl (80.0-94.0) 12/21/17 04:25 MCH 29.0 pg (27.0-31.0) 12/21/17 04:25 MCHC 32.6 g/dL (33.0-37.0) L 12/21/17 04:25 RDW 20.7 % (11.5-14.5) H 12/21/17 04:25 Plt Count 30 K/uL (130-400) L* D 12/21/17 04:25 MPV 7.6 fl (7.2-11.7) 12/18/17 06:00 Neut % (Auto) 80.3 % (50.0-75.0) H 12/18/17 06:00 Lymph % (Auto) 10.7 % (20.0-40.0) L 12/18/17 06:00 [place] % (Auto) 7.4 % (0.0-10.0) 12/18/17 06:00 Eos % (Auto) 1.1 % (0.0-4.0) 12/18/17 06:00 Baso % (Auto) 0.5 % (0.0-2.0) 12/18/17 06:00 Neut # (Auto) 5.1 K/uL (1.8-7.0) 12/18/17 06:00 Lymph # (Auto) 0.7 K/uL (1.0-4.3) L 12/18/17 06:00 [place] # (Auto) 0.5 K/uL (0.0-0.8) 12/18/17 06:00 Eos # (Auto) 0.1 K/uL (0.0-0.7) 12/18/17 06:00 Baso # (Auto) 0.0 K/uL (0.0-0.2) 12/18/17 06:00 Neutrophils % (Manual) 76 % (42-75) H 12/14/17 16:59 Band Neutrophils % 3 % (0-2) H 12/14/17 16:59 Lymphocytes % (Manual) 11 % (20-50) L 12/14/17 16:59 Reactive Lymphs % 1 % (0-0) H 12/14/17 16:59 Monocytes % (Manual) 9 % (0-10) 12/14/17 16:59 Toxic Granulation Present 12/14/17 16:59 Platelet Estimate Normal (NORMAL) 12/14/17 16:59 RBC Morphology Normal (NORMAL) 12/14/17 16:59 Polychromasia Slight 12/14/17 16:59 Hypochromasia (manual) Slight 12/14/17 16:59 Poikilocytosis (manual Slight 12/14/17 16:59 Anisocytosis (manual) Slight 12/14/17 16:59 PT 13.6 Seconds (9.8-13.1) H 12/18/17 06:00 INR 1.2 12/18/17 06:00 APTT 31.4 Seconds (25.6-37.1) 12/18/17 06:00 pCO2 64 mm/Hg (35-45) H 12/20/17 07:12 pO2 48 mm/Hg (80-100) L 12/20/17 07:12 HCO3 37.9 mmol/L (21-28) H 12/20/17 07:12 ABG pH 7.44 (7.35-7.45) 12/20/17 07:12 ABG Total CO2 45.5 mmol/L (22-28) H 12/20/17 07:12 ABG O2 Saturation 89.2 % (95-98) L 12/20/17 07:12 ABG O2 Content 11.9 ML/dL (15-23) L 12/20/17 07:12 ABG Base Excess 16.9 mmol/L (-2.0-3.0) H 12/20/17 07:12 ABG Hemoglobin 9.9 g/dL (11.7-17.4) L 12/20/17 07:12 ABG Carboxyhemoglobin 3.1 % (0.5-1.5) H 12/20/17 07:12 POC ABG HHb (Measured) 10.3 % (0.0-5.0) H 12/20/17 07:12 ABG Methemoglobin 1.5 % (0.0-3.0) 12/20/17 07:12 ABG O2 Capacity 13.3 mL/dL (16-24) L 12/20/17 07:12 Rufus Test Yes 12/20/17 07:12 VBG pH 7.35 (7.32-7.43) 12/14/17 17:00 VBG pCO2 66 mmHg (40-60) H* 12/14/17 17:00 VBG HCO3 29.4 mmol/L 12/14/17 17:00 VBG Total CO2 38.4 mmol/L (22-28) H 12/14/17 17:00 VBG O2 Sat (Calc) 27.4 % (40-65) L 12/14/17 17:00 VBG Base Excess 8.3 mmol/L (0.0-2.0) H 12/14/17 17:00 VBG Potassium 3.8 mmol/L (3.6-5.2) 12/14/17 17:00 A-a O2 Difference 86.0 mm/Hg 12/20/17 07:12 Hgb O2 Saturation 85.1 % (95.0-98.0) L 12/20/17 07:12 Sodium 138.0 mmol/L (132-148) 12/14/17 17:00 Chloride 103.0 mmol/L (98-107) 12/14/17 17:00 Glucose 39 mg/dL (75-110) L* 12/14/17 17:00 Lactate 1.4 mmol/L (0.7-2.1) 12/14/17 17:00 FiO2 30.0 % 12/20/17 07:12 Blood Gas Comments 2l,m n.lr 12/20/17 07:12 Crit Value Called To Augustine mari 12/14/17 17:00 Crit Value Called By [id number] 12/14/17 17:00 Crit Value Read Back N 12/20/17 07:12 Blood Gas Notified Time 1703 12/14/17 17:00 Sodium 146 mmol/l (132-148) 12/21/17 04:25 Potassium 3.6 MMOL/L (3.6-5.0) 12/21/17 04:25 Chloride 104 mmol/L (98-107) 12/21/17 04:25 Carbon Dioxide 41 mmol/L (22-30) H* 12/21/17 04:25 Anion Gap 5 (10-20) L 12/21/17 04:25 BUN 19 mg/dl (9-20) 12/21/17 04:25 Creatinine 1.2 mg/dl (0.8-1.5) 12/21/17 04:25 Est GFR ( Amer) > 60 12/21/17 04:25 Est GFR (Non-Af Amer) > 60 12/21/17 04:25 POC Glucose (mg/dL) 78 mg/dL (65-110) 12/22/17 10:56 Random Glucose 79 mg/dL (75-110) 12/21/17 04:25 Calcium 10.6 mg/dL (8.4-10.2) H 12/21/17 04:25 Iron < 10 ug/dL (49-181) L 12/16/17 13:25 TIBC 174 ug/dL (250-450) L 12/16/17 13:25 % Saturation 5.7 % (20-55) L 12/16/17 13:25 Ferritin 158.0 ng/Ml (17.9-464) 12/16/17 13:25 Total Bilirubin 0.4 mg/dl (0.2-1.3) 12/20/17 05:00 AST 30 U/L (17-59) 12/20/17 05:00 ALT 20 U/L (21-72) L 12/20/17 05:00 Alkaline Phosphatase 67 U/L (38-126) 12/20/17 05:00 Troponin I 0.0590 ng/mL (0.00-0.120) 12/14/17 16:59 NT-Pro-B Natriuret Pep 5260 pg/ml (0-900) H 12/14/17 16:59 Total Protein 6.5 G/DL (6.3-8.2) 12/20/17 05:00 Albumin 2.3 g/dL (3.5-5.0) L 12/20/17 05:00 Globulin 4.2 gm/dL (2.2-3.9) H 12/20/17 05:00 Albumin/Globulin Ratio 0.5 (1.0-2.1) L 12/20/17 05:00 Vitamin B12 555 pg/mL (239-931) 12/16/17 13:25 Folate 10.0 ng/mL 12/16/17 13:25 Venous Blood Potassium 3.8 mmol/L (3.6-5.2) 12/14/17 17:00 Urine Color Yellow (YELLOW) 12/19/17 12:40 Urine Clarity Slighty-cloudy (Clear) 12/19/17 12:40 Urine pH 6.0 (5.0-8.0) 12/19/17 12:40 Ur Specific [place] 1.010 (1.003-1.030) 12/19/17 12:40 Urine Protein 30 mg/dL (NEGATIVE) 12/19/17 12:40 Urine Glucose (UA) Neg mg/dL (Normal) 12/19/17 12:40 Urine Ketones Negative mg/dL (NEGATIVE) 12/19/17 12:40 Urine Blood Large (NEGATIVE) 12/19/17 12:40 Urine Nitrate Negative (NEGATIVE) 12/19/17 12:40 Urine Bilirubin Negative (NEGATIVE) 12/19/17 12:40 Urine Urobilinogen 0.2-1.0 mg/dL (0.2-1.0) 12/19/17 12:40 Ur Leukocyte Esterase Neg [place]ap[place]/uL (Negative) 12/19/17 12:40 Urine RBC (Auto) 279 /hpf (0-3) H 12/19/17 12:40 Urine Microscopic WBC 16 /hpf (0-5) H 12/19/17 12:40 Ur Squamous Epith Cells < 1 /hpf (0-5) 12/15/17 03:00 Calcium Oxalate Crystal Occ /hpf (<OCC) H 12/15/17 03:00 Urine Bacteria Rare (<OCC) 12/15/17 03:00 Stool Occult Blood Positive (NEGATIVE) H 12/14/17 19:19 Vancomycin Trough 42.0 ug/mL (5.0-10.0) H 12/21/17 04:25 Grp A Beta Strep Ag Negative (NEGATIVE) 12/14/17 17:00 Blood Type A POSITIVE 12/17/17 15:15 Antibody Screen Negative 12/17/17 15:15 Crossmatch See Detail 12/17/17 15:15 BBK History Checked Patient has bt 12/17/17 15:15 - Hospital Course Hospital Course: 57 y/o male with h/o Bipolar disorder, DM, metastatic laryngeal cancer undergoing chemo last treatment on 12/01 OPDIVA presents to ED complaint of weakness associated with nausea/vomiting/syncope x 1 day. Also reported significant swelling of left jaw line and neck area throat pain. anemic s/p PRBC x2, Heme/Onc and Pulmonology on board. patient condition deteriorating during stay with very bad prognosis. Discussed goals of care with patient's ex / son and family is in agreement with hospice Eval/ DNR/DNI. Discharge Exam - Head Exam Head Exam: NORMAL INSPECTION - Eye Exam Eye Exam: Normal appearance - Respiratory Exam Respiratory Exam: Clear to PA & Lateral - Cardiovascular Exam Cardiovascular Exam: REGULAR RHYTHM - GI/Abdominal Exam GI & Abdominal Exam: Soft. absent: Distended, Tenderness - Neurological Exam Additional comments: lethargic, nonverbal - Skin Skin Exam: Dry, Warm Discharge Plan - Follow Up Plan Condition: FAIR Disposition: HOSPICE - MEDICAL FACILITY
[2017-12-22] MEDS ORDERED: Morphine 100 MG in Sodium Chloride 0.9% 100 ML IV SCH (14:45)
--- NOTE | 2017-12-27 16:51 | PQF ---
PROVIDER RESPONSE TEXT: Confirmed and current REVIEWER QUERY TEXT: Conflicting Documentation Clarification Attending with Collapse of L lung. Pulmonary with Pneumonia and collapse of L lung. Please clarify if you are in agreement with Pneumonia as an additional diagnosis as well. A single mention or documentation of multiple diagnoses for the same clinical presentation appears in the record. Please clarify the diagnosis/diagnoses. Please also document if the condition is: -- Confirmed and current -- Confirmed, treated and resolved -- Ruled out -- Other, please specify The patient's Clinical Indicators include: Admitted with nausea and vomiting dark black material. Stool for occult blood positive. Weakness note d. Patient has metastatic laryngeal cancer and admitted with upper GI Bleed. 12/14 CXR: Multiple pulmonary, pleural base masses bilaterally. Left lower lobe infiltrate. 12/15 CT Chest: Large spiculated mass in the posterior segment of the right upper lobe and multiple large solid masses in the right upper lobe, right lower lobe and left upper lobe concerning for prim ric lung cancer with metastatic masses. Bilateral hilar and mediastinal lymphadenopathy, likely metastatic. Small per ihepatic ascites. Incompletely characterized lesions in the posterior aspect of the upper pole of th e left kidney. Rx: IVAB Query created by: Dunia Amaro on 12/20/2017 11:05 AM Electronically signed by: Carlos Greer MD 12/27/2017 4:48 PM
== END 2017-12-22 14:58 | disposition hospice, inpatient (51) | DRG 552 ==
LOC: H.ER 15:30 → H.ERHOLD 20:18 → H.TEL 23:54
PROVIDERS: ADMIT Family Medicine; ATTEND Family Medicine
PROC: 3E0 Administration, Physiological Systems and Anatomical Regions, Introduction (ICD-10-PCS; 2017-12-16)
PROC: 02HV33Z Insertion of Infusion Device into Superior Vena Cava, Percutaneous Approach (ICD-10-PCS; principal; 2017-12-17)
PROC: 30233N1 Transfusion of Nonautologous Red Blood Cells into Peripheral Vein, Percutaneous Approach (ICD-10-PCS; 2017-12-17)
PROC: 0D20XUZ Change Feeding Device in Upper Intestinal Tract, External Approach (ICD-10-PCS; 2017-12-21)
DX: K92.2 Gastrointestinal hemorrhage, unspecified (principal); J18.9 Pneumonia, unspecified organism; E86.0 Dehydration; E11.649 Type 2 diabetes mellitus with hypoglycemia without coma; C77.0 Secondary and unspecified malignant neoplasm of lymph nodes of head, face and neck; C78.00 Secondary malignant neoplasm of unspecified lung; D69.6 Thrombocytopenia, unspecified; J98.11 Atelectasis; C79.89 Secondary malignant neoplasm of other specified sites; C32.9 Malignant neoplasm of larynx, unspecified; G89.3 Neoplasm related pain (acute) (chronic); K11.20 Sialoadenitis, unspecified; Z93.1 Gastrostomy status; D64.81 Anemia due to antineoplastic chemotherapy; D63.0 Anemia in neoplastic disease; E78.00 Pure hypercholesterolemia, unspecified; Z87.891 Personal history of nicotine dependence; Z79.01 Long term (current) use of anticoagulants; F31.9 Bipolar disorder, unspecified; T45.1X5A Adverse effect of antineoplastic and immunosuppressive drugs, initial encounter; Z79.891 Long term (current) use of opiate analgesic; Z66 Do not resuscitate

== ENCOUNTER 2017-12-22 14:17 | Inpatient (IN) | payer OTHER ==
[2017-12-22 15:23] VITALS: BMI 29.0
[2017-12-22] MEDS ORDERED: Morphine 100 MG in Sodium Chloride 0.9% 100 ML IV SCH (15:30)
--- NOTE | 2017-12-22 15:47 | CP.PCM.HP ---
<ChurchAzucena - Last Filed: 12/22/17 15:43> History of Present Illness - History of Present Illness History of Present Illness: 57 y/o male with h/o Bipolar disorder, DM, metastatic laryngeal cancer undergoing chemo last treatment on 12/01 OPDI admitted for inpatient Hospice services. Present on Admission - Present on Admission Any Indicators Present on Admission: No Past Patient History - Past Medical History & Family History Past Medical History?: Yes - Past Social History Smoking Status: Former Smoker (heavy smoker) - CARDIAC Hx Cardiac Disorders: Yes Hx Hypercholesterolemia: Yes - PULMONARY Hx Respiratory Disorders: Yes Hx Chronic Obstructive Pulmonary Disease (COPD): Yes - NEUROLOGICAL Hx Neurological Disorder: No - HEENT Hx HEENT Problems: Yes Other/Comment: Laryngeal ca - RENAL Hx Chronic Kidney Disease: No - ENDOCRINE/METABOLIC Hx Endocrine Disorders: Yes Hx Diabetes Mellitus Type 2: Yes - HEMATOLOGICAL/ONCOLOGICAL Hx Blood Disorders: No Hx AIDS: No Hx Human Immunodeficiency Virus (HIV): No - INTEGUMENTARY Hx Dermatological Problems: No - MUSCULOSKELETAL/RHEUMATOLOGICAL Hx Musculoskeletal Disorders: No Hx Falls: No - GASTROINTESTINAL Hx Gastrointestinal Disorders: Yes HX Swallowing Problems: Yes Other/Comment: Peg tube - GENITOURINARY/GYNECOLOGICAL Hx Genitourinary Disorders: No - PSYCHIATRIC Hx Psychophysiologic Disorder: Yes Hx Bipolar Disorder: Yes Hx Substance Use: Yes - SURGICAL HISTORY Hx Surgeries: Yes Other/Comment: THROAT SX, PATIENT OR FAMILY DOES NOT KNOW NAME OF PROCEDURE - ANESTHESIA Hx Anesthesia: Yes Hx Anesthesia Reactions: No Hx Malignant Hyperthermia: No Meds Allergies/Adverse Reactions: Allergies Allergy/AdvReac Type Severity Reaction Status Date / Time No Known Allergies Allergy Verified 12/14/17 15:39 Physical Exam - Constitutional Appears: No Acute Distress, Older Than Stated Age, Chronically Ill - Head Exam Head Exam: NORMAL INSPECTION - ENT Exam ENT Exam: Mucous Membranes Dry - Respiratory Exam Respiratory Exam: Clear to Auscultation Bilateral - Cardiovascular Exam Cardiovascular Exam: REGULAR RHYTHM, +S1, +S2 - GI/Abdominal Exam GI & Abdominal Exam: Soft. absent: Distended, Tenderness - Extremities Exam Extremities exam: Negative for: pedal edema - Neurological Exam Additional comments: lethargic - Skin Skin Exam: Dry, Warm Assessment & Plan - Assessment and Plan (Free Text) Assessment: 57 y/o male with h/o Bipolar disorder, DM, metastatic laryngeal cancer undergoing chemo last treatment on 12/01 OPDIVA admitted for inpatient Hospice services. Plan: - Morphine drip - Tylenol [place] prn for fever - Rest of plan as per Hospice services Case seen and examined with Dr Greer <Carlos Greer - Last Filed: 12/31/17 16:28> Results - Vital Signs Recent Vital Signs: Last Vital Signs Temp 98.2 F 12/25/17 16:07 Pulse 122 H 12/25/17 16:07 Resp 18 12/25/17 23:16 BP 100/58 L 12/25/17 16:07 Pulse Ox 85 L 12/25/17 16:07 Assessment & Plan (1) Laryngeal malignant neoplasm Status: Acute
[2017-12-23] MEDS ORDERED: Morphine 100 MG in Sodium Chloride 0.9% 100 ML IV SCH (11:00)
[2017-12-23] MEDS: Morphine 100 MG in Sodium Chloride 0.9% 100 ML IV SCH (17:39)
[2017-12-23] MEDS ORDERED: Vitamin A/D oint 60G TP PRN (22:00)
[2017-12-24] MEDS: Morphine 100 MG in Sodium Chloride 0.9% 100 ML IV SCH ×4 (05:44→21:26)
[2017-12-25 09:20] VITALS: O2SAT 85
[2017-12-25] MEDS: Morphine 100 MG in Sodium Chloride 0.9% 100 ML IV SCH (15:30)
[2017-12-25 16:08] VITALS: BP 100/58; PULSE 122; TEMP 98.2
[2017-12-25 23:17] VITALS: RESP 18
--- NOTE | 2017-12-26 | CP.PCM.PRO ---
Pronouncement of Note - Clinical Findings Physical Exam: No Response Verbal/Painful Stimuli, Absent Peripheral Puls es{Carotid & Femoral}, Absent Heart & Breath Sounds, No Pupillary Light Reflex, No Corneal Reflex, Pupils Fixed & Dilated, Absence of Vital Signs - Pronouncement Time Time of Pronouncement of : 23:30 - Notifications Pronouncement Notifications: Family Notified, Atending Notified Substation Operator Notified: No - Autopsy Autopsy Requested: No - [place] [id number] Additional Comments: This patient was DNR/DNI with Hospice management
--- NOTE | 2017-12-27 22:56 | CP.PCM.PN ---
Subjective - Date & Time of Evaluation Date of Evaluation: 12/24/17 Time of Evaluation: 18:00 - Subjective Subjective: patienty is comfortable Has no pain or SOB. Objective - Vital Signs/Intake and Output Vital Signs (last 24 hours): Temp Pulse Resp BP Pulse Ox 98.2 F 122 H 18 100/58 L 85 L 12/25/17 16:07 12/25/17 16:07 12/25/17 23:16 12/25/17 16:07 12/25/17 16:07 - Head Exam Head Exam: NORMAL INSPECTION - ENT Exam ENT Exam: Mucous Membranes Dry - Respiratory Exam Respiratory Exam: Decreased Breath Sounds - Cardiovascular Exam Cardiovascular Exam: REGULAR RHYTHM - GI/Abdominal Exam GI & Abdominal Exam: Diminished Bowel Sounds Assessment and Plan (1) Laryngeal malignant neoplasm Status: Acute - Assessment and Plan (Free Text) Plan: continue comfort care cont pain meds.
--- NOTE | 2017-12-31 11:04 | CP.PCM.DIS ---
Addendum entered and electronically signed by Azucena Church MD 12/31/17 11:10: Note was written on 12/28/2017, 10:00am Original Note: <Azucena Church - Last Filed: 12/31/17 11:04> Provider - Provider Date of Admission: 12/22/17 15:15 Attending physician: Eleazar Casarez MD Time Spent in preparation of Discharge (in minutes): 35 Diagnosis - Discharge Diagnosis (1) Laryngeal malignant neoplasm Status: Acute (2) Lung metastasis Status: Acute Hospital Course - Hospital Course Hospital Course: 57 y/o male with h/o Bipolar disorder, DM, metastatic laryngeal cancer undergoing chemo was admitted on 12/22/17 for inpatient Hospice services. Patient received comfort measures provided by hospice and on 12/25/17. Discharge Plan - Follow Up Plan Condition: Disposition: WITH WITHOUT AUTOPSY <Carlos Greer - Last Filed: 12/31/17 16:26> Provider - Provider Date of Admission: 12/22/17 15:15 Attending physician: Eleazar Casarez MD Diagnosis - Discharge Diagnosis (1) Laryngeal malignant neoplasm Status: Acute
== END 2017-12-26 03:30 | DRG 951 ==
LOC: H.TEL 15:15 → H.MEDSURG1 18:30
PROVIDERS: ADMIT Family Medicine; ATTEND Family Medicine
DX: Z51.5 Encounter for palliative care (principal); C78.00 Secondary malignant neoplasm of unspecified lung; C32.9 Malignant neoplasm of larynx, unspecified; E11.9 Type 2 diabetes mellitus without complications; F31.9 Bipolar disorder, unspecified; Z87.891 Personal history of nicotine dependence; E78.00 Pure hypercholesterolemia, unspecified; J44.9 Chronic obstructive pulmonary disease, unspecified; Z93.1 Gastrostomy status